=== PATIENT | male | born 1945 | race Caucasian/White ===

== ENCOUNTER → 2017-06-17 09:26 | Outpatient (CLI) | payer MEDICARE ==
[2015-11-03 12:28] VITALS: BMI 23.1
[~2017-06-17 09:26] MED LIST: BAYER CHEWABLE81 MG PO; PROZAC10 MG PO; ZESTRIL10 MG PO
== END | disposition home or self-care (01) ==
LOC: D.MRI 09:26
DX: M54.16 Radiculopathy, lumbar region (principal)

== ENCOUNTER 2018-07-13 10:48 | Inpatient (IN) | payer MEDICARE ==
[~2018-07-13] VITALS: Ht 172.7 cm; Wt 63.5 kg
--- NOTE | ~2018-07-13 | MORECARE ---
CASE MANAGEMENT DISCHARGE SUMMARY PATIENT: DELFINO ROSALES UNIT: [id number] ADM DATE: 07/13/18 AGE: 73 : 46 SEX: M ROOM/BED: D.2203 AUTHOR: GUALBERTO,DOC PHYSICIAN: REFERRING PHYSICIAN: ALEXANDRO QUEVEDO MD DATE OF SERVICE: 08/14/18 Discharge Plan Patient Name: DELFINO ROSALES Facility: [facility]:[place] : 1945 Planned Disposition: Home Anticipated Discharge Date: Discharge Date: Expected LOS: Initial Reviewer: [id number] Initial Review Date: 07/13/2018 Generated: 08/14/18 1:29 pm Comments DCP- Discharge Planning Updated by [id number]: Emmy Bardales on 08/14/18 11:[address] PATIENT AND FAMILY WOULD LIKE TO GO TO HOSPICE. THEY WOULD LIKE TO USE [facility], I CALLED AND SPOKE WITH RADHA FOR THE REFERRAL AND THEY WILL CALL ME BACK WITH A TIME THAT THEY WILL MEET WITH FAMILY IMM SERVED DCP- Discharge Planning Updated by [id number]: Scarlett Fred on 08/13/18 2:[address] Received a call from Dariela at [facility], she needs updated PT notes for insurance, I faxed them to her. CM will continue to follow and assist with discharge planning/needs. DCP- Discharge Planning Updated by [id number]: Emmy Bardales on 08/13/18 10:[address] Martha with [facility] called back and stated that they are waiting on auth for insurance. CM will continue to follow DCP- Discharge Planning Updated by [id number]: Emmy Bardales on 08/13/18 8:[address] CALLED [facility] FOR UPDATE ON PATIENT, LM FOR MARTHA TO CALL ME BACK DCP- Discharge Planning Updated by [id number]: Emmy Bardales on 08/12/18 1:[address] Sent clinicals to the [facility], they notified me today that they do not accept this insurance, Spoke with family they would like to send referral to [facility]. Will send referral DCP- Discharge Planning Updated by [email or web address]: Emmy Bardales on 08/11/18 3:[address] SPOKE WITH AND PATIENT ABOUT SKILLED REHAB. GAVE THEM OPTIONS AND THEY WILL LET ME KNOW EHICH ONE THEY WOULD LIKE TO SEND CLINICALS TO. CM WILL CONTINUE TO FOLLOW AND ASSIST WITH DC PLANNING DCP- Discharge Planning Updated by [id number]: Emmy Bardales on 08/05/18 11:[address] CALLED MARTHA AT [email or web address] [facility] TO LET HER KNOW THAT HE WAS NOT DISCHARGING HOME TODAY, SHE WAS MOVING HIM TO FRIDAY'S SCHEDULE INCASE HE WENT HOME TOMORROW CM WILL CONTINUE TO FOLLOW DCP- Discharge Planning Updated by [id number]: Emmy Bardales on 08/04/18 11:[address] SPOKE WITH ONDINA WITH [facility] PATIENT, ORDER SENT OVER CM WILL CONTINUE TO FOLLOW AND ASSIST DCP- Discharge Planning Updated by [id number]: Emmy Bardales on 08/04/18 10:[address] SPOKE WITH PATIENT AND ABOUT DC PLANNING, THEY WOULD LIKE HOME HEALTH AND PT WHEN THEY ARE DISCHARGED. YONI WITH [facility] AND [facility] #2. HE WILL NEED HOME O2, BSC, WALKER, ? NEBULIER. CM WILL CONTINUE TO FOLLOW AND ASSIST WITH DC PLANNING, SENT REFERRAL TO [email or web address] AND SPOKE WITH MARTHA IMM SERVED AND EXPLAINED DCP- Discharge Planning Updated by [email or web address]: Linette Gómez on 07/25/18 12:[address] LATE ENTRY 1000 AND SISTER IN LAW REQUESTED WITNESS FOR LIVING WILL AND HEALTH CARE PROXY. CM AND ER CMMARGE, WENT TO THE ROOM. PATIENT IS AWAKE AND ORIENTED TO PERSON, PLACE AND TIME. IS SLOW TO ANSWER, CM READ THE PAPERWORK REGARDING WISHES FOR MEDICAL TREATMENT OPTIONS. HIS AND SISTER IN LAW USUALLY ANSWERED THE QUESTIONS BEFORE THE PATIENT. CM ADVISED HE MUST HIS CHOICES KNOWN. HE SIGNED THE 2 FORMS REGARDING HIS CARE CHOICES. WITNESSED BY LABORATORY ANIMAL CARETAKER. THREE COPIES MADE AND ALL COPIES GIVEN TO THE AT HER REQUEST. DCP- Discharge Planning Updated by [id number]: Emmy Bardales on 07/14/18 12:[address] Patient Name: DELFINO ROSALES Admission Status: Elective Accout number: [id number] Admission Date: 07-13-2018 : 1945 Admission Diagnosis: Attending: ALEXANDRO QUEVEDO Current LOS: 1 Anticipated DC Date: Planned Disposition: Home Primary Insurance: [employer] Discharge Planning Comments: CM MET WITH PATIENT AND TO ASSESS DISCHARGE PLANNING NEEDS. PATIENT LIVES INDEPENDENLTY AT HOME WITH HIS WHERE HE PLANS TO RETURN. HE STATED THAT HE DENIES ANY DME OR COMMUNITY RESOURCES AT THIS TIME. HE STATES HIS HOME IS SAFE TO RETURN AND HIS WILL BE THE ONE TO DRIVE HIM. CM WILL CONTINUE TO FOLLOW AND ASSIST WITH DC PLANNING Edge Bander Operator: Emmy Bardales DCPIA - Discharge Planning Initial Assessment Updated by [email or web address]: Emmy Bardales on 07/14/18 12:31 pm * Is the patient Alert and Oriented? Yes * How many steps to enter\exit or inside your home? * PCP SAE * Pharmacy [facility] * Preadmission Environment Home with Family * ADLs Independent * Equipment None * List name and contact numbers for known caregivers / representatives who currently or will assist patient after discharge: ZAYDA () [phone] * Verbal permission to speak to the caregivers and representatives has been obtained from the patient. Yes * Community resources currently utilized None * Additional services required to return to the preadmission environment? No * Can the patient safely return to the preadmission environment? Yes * Has this patient been hospitalized within the prior 30 days at any hospital? No Coverage Notice Reviewer: [id number] Alyse Bardales Notice Issued Date-Time: 08/04/2018 10:40 Notice Type: IM Discharge Notice Notice Delivered To: Family Member Relationship to Patient: Spouse Mechanical Systems Control Engineer Name: ELDER ROSALES Delivery Method: HAND - Hand Delivered Maegan Days: Prior Verbal Notification: Recipient Understood Notice: Yes Recipient Signature: Yes Med Rec Note Co-signed by Attending: Coverage Notice Comment: Reviewer: [id number] - Emmy Bardales Notice Issued Date-Time: 08/14/2018 11:50 Notice Type: IM Discharge Notice Notice Delivered To: Family Member Relationship to Patient: Spouse Mechanical Systems Control Engineer Name: ZAYDA Delivery Method: HAND - Hand Delivered Maegan Days: Prior Verbal Notification: Recipient Understood Notice: Yes Recipient Signature: Yes Med Rec Note Co-signed by Attending: Coverage Notice Comment: Last DP export: 08/14/18 11:08 Patient Name: DELFINO ROSALES Page 41649 at 1229 All edits/amendments must be made on the electronic document DICTATION DATE: 08/14/181228 PRODUCTION SOUND MIXER: DEMARCUS 08/14/18 1229 RPT#: [id number] DC DATE: STATUS: ADM IN [facility] [address] [place] [address] END OF REPORT
--- NOTE | ~2018-07-13 | MORECARE ---
CASE MANAGEMENT DISCHARGE SUMMARY PATIENT: DELFINO ROSALES UNIT: [id number] ADM DATE: 07/13/18 AGE: 73 : 46 SEX: M ROOM/BED: D.2203 AUTHOR: GUALBERTO,DOC PHYSICIAN: REFERRING PHYSICIAN: ALEXANDRO QUEVEDO MD DATE OF SERVICE: 08/13/18 Discharge Plan Patient Name: DELFINO ROSALES Facility: [facility]:[place] : 1945 Planned Disposition: Home Anticipated Discharge Date: Discharge Date: Expected LOS: Initial Reviewer: [id number] Initial Review Date: 07/13/2018 Generated: 08/13/18 11:03 am Comments DCP- Discharge Planning Updated by [id number]: Emmy Bardales on 08/13/18 8:[address] CALLED [facility] FOR UPDATE ON PATIENT, FOR ALVINO TO CALL ME BACK DCP- Discharge Planning Updated by [email or web address]: Emmy Bardales on 08/12/18 1:[address] Sent clinicals to the [facility], they notified me today that they do not accept this insurance, Spoke with family they would like to send referral to [place]. Will send referral DCP- Discharge Planning Updated by [id number]: Emmy Bardales on 08/11/18 3:[address] SPOKE WITH AND PATIENT ABOUT SKILLED REHAB. GAVE THEM OPTIONS AND THEY WILL LET ME KNOW EHICH ONE THEY WOULD LIKE TO SEND CLINICALS TO. CM WILL CONTINUE TO FOLLOW AND ASSIST WITH DC PLANNING DCP- Discharge Planning Updated by [id number]: Emmy Bardales on 08/05/18 11:[address] CALL[address] MARTHA AT [facility] TO LET HER KNOW THAT HE WAS NOT DISCHARGING HOME TODAY, SHE WAS MOVING HIM TO FRIDAY'S SCHEDULE INCASE HE WENT HOME TOMORROW CM WILL CONTINUE TO FOLLOW DCP- Discharge Planning Updated by [id number]: Emmy Bardales on 08/04/18 11:[address] SPOKE WITH ONDINA WITH [facility] PATIENT, ORDER SENT OVER CM WILL CONTINUE TO FOLLOW AND ASSIST DCP- Discharge Planning Updated by [id number]: Emmy Bardales on 08/04/18 10:[address] SPOKE WITH PATIENT AND ABOUT DC PLANNING, THEY WOULD LIKE HOME HEALTH AND PT WHEN THEY ARE DISCHARGED. YONI WITH [facility] AND [facility] #2. HE WILL NEED HOME O2, BSC, WALKER, ? NEBULIER. CM WILL CONTINUE TO FOLLOW AND ASSIST WITH DC PLANNING, SENT REFERRAL TO [facility] AND SPOKE WITH MARTHA SCHAFER AND EXPLAINED DCP- Discharge Planning Updated by [id number]: Linette Gómez on 07/25/18 12:[address] LATE ENTRY 1000 AND SISTER IN LAW REQUESTED WITNESS FOR LIVING WILL AND HEALTH CARE PROXY. CM AND ER CM, MARGE, WENT TO THE ROOM. PATIENT IS AWAKE AND ORIENTED TO PERSON, PLACE AND TIME. IS SLOW TO ANSWER, CM READ THE PAPERWORK REGARDING WISHES FOR MEDICAL TREATMENT OPTIONS. HIS AND SISTER IN LAW USUALLY ANSWERED THE QUESTIONS BEFORE THE PATIENT. CM ADVISED HE MUST HIS CHOICES KNOWN. HE SIGNED THE 2 FORMS REGARDING HIS CARE CHOICES. WITNESSED BY SUPERVISOR GLUING. THREE COPIES MADE AND ALL COPIES GIVEN TO THE AT HER REQUEST. DCP- Discharge Planning Updated by [id number]: Emmy Bardales on 07/14/18 12:[address] Patient Name: DELFINO ROSALES Admission Status: Elective Accout number: [id number] Admission Date: 07-13-2018 : 1945 Admission Diagnosis: Attending: ALEXANDRO QUEVEDO Current LOS: 1 Anticipated DC Date: Planned Disposition: Home Primary Insurance: [employer] Discharge Planning Comments: CM MET WITH PATIENT AND TO ASSESS DISCHARGE PLANNING NEEDS. PATIENT LIVES INDEPENDENLTY AT HOME WITH HIS WHERE HE PLANS TO RETURN. HE STATED THAT HE DENIES ANY DME OR COMMUNITY RESOURCES AT THIS TIME. HE STATES HIS HOME IS SAFE TO RETURN AND HIS WILL BE THE ONE TO DRIVE HIM. CM WILL CONTINUE TO FOLLOW AND ASSIST WITH DC PLANNING Indigo Vat Tender Cloth: Emmy Bardales DCPIA - Discharge Planning Initial Assessment Updated by [id number]: Emmy Bardales on 07/14/18 12:31 pm * Is the patient Alert and Oriented? Yes * How many steps to enter\exit or inside your home? * PCP SAE * Pharmacy [facility] * Preadmission Environment Home with Family * ADLs Independent * Equipment None * List name and contact numbers for known caregivers / representatives who currently or will assist patient after discharge: ZAYDA () [phone] * Verbal permission to speak to the caregivers and representatives has been obtained from the patient. Yes * Community resources currently utilized None * Additional services required to return to the preadmission environment? No * Can the patient safely return to the preadmission environment? Yes * Has this patient been hospitalized within the prior 30 days at any hospital? No Coverage Notice Reviewer: [id number] Alyse Bardales Notice Issued Date-Time: 08/04/2018 10:40 Notice Type: IM Discharge Notice Notice Delivered To: Family Member Relationship to Patient: Spouse Process Steward Name: ELDER ROSALES Delivery Method: HAND - Hand Delivered Maegan Days: Prior Verbal Notification: Recipient Understood Notice: Yes Recipient Signature: Yes Med Rec Note Co-signed by Attending: Coverage Notice Comment: Last DP export: 08/12/18 1:09 Patient Name: DELFINO ROSALES Page 86887 at 1003 All edits/amendments must be made on the electronic document DICTATION DATE: 08/13/18 1002 WORKFORCE DEVELOPMENT SPECIALIST: DEMARCUS 08/13/18 1002 RPT#: [id number] DC DATE: STATUS: ADM IN [facility] [address] [place] [address] END OF REPORT
--- NOTE | ~2018-07-13 | MORECARE ---
CASE MANAGEMENT DISCHARGE SUMMARY PATIENT: DELFINO ROSALES UNIT: [id number] ADM DATE: 07/13/18 AGE: 73 : 46 SEX: M ROOM/BED: D.2203 AUTHOR: GUALBERTO,DOC PHYSICIAN: REFERRING PHYSICIAN: ALEXANDRO QUEVEDO MD DATE OF SERVICE: 08/11/18 Discharge Plan Patient Name: DELFINO ROSALES Facility: [facility]:[place] : 1945 Planned Disposition: Home Anticipated Discharge Date: Discharge Date: Expected LOS: Initial Reviewer: [id number] Initial Review Date: 07/13/2018 Generated: 08/11/18 5:21 pm Comments DCP- Discharge Planning Updated by [id number]: Emmy Bardales on 08/11/18 3:[address] SPOKE WITH AND PATIENT ABOUT SKILLED REHAB. GAVE THEM OPTIONS AND THEY WILL LET ME KNOW EHICH ONE THEY WOULD LIKE TO SEND CLINICALS TO. CM WILL CONTINUE TO FOLLOW AND ASSIST WITH DC PLANNING DCP- Discharge Planning Updated by [id number]: Emmy Bardales on 08/05/18 11:[address] CALLED MARTHA AT [facility] TO LET HER KNOW THAT HE WAS NOT DISCHARGING HOME TODAY, SHE WAS MOVING HIM TO FRIDAY'S SCHEDULE INCASE HE WENT HOME TOMORROW CM WILL CONTINUE TO FOLLOW DCP- Discharge Planning Updated by [id number]: Emmy Bardales on 08/04/18 11:[address] SPOKE WITH ONDINA WITH [facility] PATIENT, ORDER SENT OVER CM WILL CONTINUE TO FOLLOW AND ASSIST DCP- Discharge Planning Updated by [email or web address]: Emmy Bardales on 08/04/18 10:[address] SPOKE WITH PATIENT AND ABOUT DC PLANNING, THEY WOULD LIKE HOME HEALTH AND PT WHEN THEY ARE DISCHARGED. YONI WITH [facility]1 AND [facility] #2. HE WILL NEED HOME O2, BSC, WALKER, ? NEBULIER. CM WILL CONTINUE TO FOLLOW AND ASSIST WITH DC PLANNING, SENT REFERRAL TO [facility] AND SPOKE WITH MARTHA AVALOS SERVED AND EXPLAINED DCP- Discharge Planning Updated by [id number]: Linette Gómez on 07/25/18 12:[address] LATE ENTRY 1000 AND SISTER IN LAW REQUESTED WITNESS FOR LIVING WILL AND HEALTH CARE PROXY. CM AND ER CM, MARGE, WENT TO THE ROOM. PATIENT IS AWAKE AND ORIENTED TO PERSON, PLACE AND TIME. IS SLOW TO ANSWER, CM READ THE PAPERWORK REGARDING WISHES FOR MEDICAL TREATMENT OPTIONS. HIS AND SISTER IN LAW USUALLY ANSWERED THE QUESTIONS BEFORE THE PATIENT. CM ADVISED HE MUST HIS CHOICES KNOWN. HE SIGNED THE 2 FORMS REGARDING HIS CARE CHOICES. WITNESSED BY HAND BUNCH MAKER. THREE COPIES MADE AND ALL COPIES GIVEN TO THE AT HER REQUEST. DCP- Discharge Planning Updated by [id number]: Emmy Bardales on 07/14/18 12:[address] Patient Name: DELFINO ROSALES Admission Status: Elective Accout number: [id number] Admission Date: 07-13-2018 : 1945 Admission Diagnosis: Attending: ALEXANDRO QUEVEDO Current LOS: 1 Anticipated DC Date: Planned Disposition: Home Primary Insurance: [employer] Discharge Planning Comments: CM MET WITH PATIENT AND TO ASSESS DISCHARGE PLANNING NEEDS. PATIENT LIVES INDEPENDENLTY AT HOME WITH HIS WHERE HE PLANS TO RETURN. HE STATED THAT HE DENIES ANY DME OR COMMUNITY RESOURCES AT THIS TIME. HE STATES HIS HOME IS SAFE TO RETURN AND HIS WILL BE THE ONE TO DRIVE HIM. CM WILL CONTINUE TO FOLLOW AND ASSIST WITH DC PLANNING Sheep Farm Worker: Emmy Bardales DCPIA - Discharge Planning Initial Assessment Updated by [email or web address]: Emmy Bardales on 07/14/18 12:31 pm * Is the patient Alert and Oriented? Yes * How many steps to enter\exit or inside your home? * PCP SAE * Pharmacy [facility] * Preadmission Environment Home with Family * ADLs Independent * Equipment None * List name and contact numbers for known caregivers / representatives who currently or will assist patient after discharge: ZAYDA () [phone] * Verbal permission to speak to the caregivers and representatives has been obtained from the patient. Yes * Community resources currently utilized None * Additional services required to return to the preadmission environment? No * Can the patient safely return to the preadmission environment? Yes * Has this patient been hospitalized within the prior 30 days at any hospital? No Coverage Notice Reviewer: [id number] - Emmy Bardales Notice Issued Date-Time: 08/04/2018 10:40 Notice Type: IM Discharge Notice Notice Delivered To: Family Member Relationship to Patient: Spouse Mold Repair Technician Name: ELDER ROSALES Delivery Method: HAND - Hand Delivered Maegan Days: Prior Verbal Notification: Recipient Understood Notice: Yes Recipient Signature: Yes Med Rec Note Co-signed by Attending: Coverage Notice Comment: Last DP export: 08/05/18 11:54 Patient Name: DELFINO ROSALES Page 65708 at 1621 All edits/amendments must be made on the electronic document DICTATION DATE: 08/11/181619 SIDEHAND: DEMARCUS 08/11/181619 RPT#: [id number] DC DATE: STATUS: ADM IN [facility] [address] [place] [address] END OF REPORT
--- NOTE | ~2018-07-13 | MORECARE ---
CASE MANAGEMENT DISCHARGE SUMMARY PATIENT: DELFINO ROSALES UNIT: [id number] ADM DATE: 07/13/18 AGE: 73 : 46 SEX: M ROOM/BED: D.2203 AUTHOR: GUALBERTODOC PHYSICIAN: REFERRING PHYSICIAN: ALEXANDRO QUEVEDO MD DATE OF SERVICE: 07/14/18 Discharge Plan Patient Name: DELFINO ROSALES Facility: [facility]:[place] : 1945 Planned Disposition: Home Anticipated Discharge Date: Discharge Date: Expected LOS: Initial Reviewer: [id number] Initial Review Date: 07/13/2018 Generated: 07/14/18 1:35 pm Comments DCP- Discharge Planning Updated by [id number]: Emmy Bardales on 07/14/18 11:[address] Patient Name: DELFINO ROSALES Admission Status: Elective Accout number: [id number] Admission Date: 07-13-2018 : 1945 Admission Diagnosis: Attending: ALEXANDRO QUEVEDO Current LOS: 1 Anticipated DC Date: Planned Disposition: Home Primary Insurance: [employer] Discharge Planning Comments: CM MET WITH PATIENT AND TO ASSESS DISCHARGE PLANNING NEEDS. PATIENT LIVES INDEPENDENLTY AT HOME WITH HIS WHERE HE PLANS TO RETURN. HE STATED THAT HE DENIES ANY DME OR COMMUNITY RESOURCES AT THIS TIME. HE STATES HIS HOME IS SAFE TO RETURN AND HIS WILL BE THE ONE TO DRIVE HIM. CM WILL CONTINUE TO FOLLOW AND ASSIST WITH DC PLANNING Tool Marker: Emmy Bardales DCPIA - Discharge Planning Initial Assessment Updated by [email or web address]: Emmy Bardales on 07/14/18 12:31 pm * Is the patient Alert and Oriented? Yes * How many steps to enter\exit or inside your home? * PCP SAE * Pharmacy [facility] * Preadmission Environment Home with Family * ADLs Independent * Equipment None * List name and contact numbers for known caregivers / representatives who currently or will assist patient after discharge: ZAYDA () [phone] * Verbal permission to speak to the caregivers and representatives has been obtained from the patient. Yes * Community resources currently utilized None * Additional services required to return to the preadmission environment? No * Can the patient safely return to the preadmission environment? Yes * Has this patient been hospitalized within the prior 30 days at any hospital? No Patient Name: DELFINO ROSALES Page 68986 at 1235 All edits/amendments must be made on the electronic document DICTATION DATE: 07/14/181233 CROP DUSTER HELPER: DEMARCUS 07/14/18 1234 RPT#: [id number] DC DATE: STATUS: ADM IN [facility] [address] [place] [address] END OF REPORT
--- NOTE | ~2018-07-13 | MORECARE ---
CASE MANAGEMENT DISCHARGE SUMMARY PATIENT: DELFINO ROSALES UNIT: [id number] ADM DATE: 07/13/18 AGE: 73 : 47 SEX: M ROOM/BED: D.2203 AUTHOR: GUALBERTO,DOC PHYSICIAN: REFERRING PHYSICIAN: ALEXANDRO QUEVEDO MD DATE OF SERVICE: 08/04/18 Discharge Plan Patient Name: DELFINO ROSALES Facility: [facility]:[place] : 1945 Planned Disposition: Home Anticipated Discharge Date: Discharge Date: Expected LOS: Initial Reviewer: [id number] Initial Review Date: 07/13/2018 Generated: 08/04/18 11:53 am Comments DCP- Discharge Planning Updated by [id number]: Linette Gómez on 07/25/18 12:[address] LATE ENTRY 1000 AND SISTER IN LAW REQUESTED WITNESS FOR LIVING WILL AND HEALTH CARE PROXY. CM AND ER CMMARGE, WENT TO THE ROOM. PATIENT IS AWAKE AND ORIENTED TO PERSON, PLACE AND TIME. IS SLOW TO ANSWER, CM READ THE PAPERWORK REGARDING WISHES FOR MEDICAL TREATMENT OPTIONS. HIS AND SISTER IN LAW USUALLY ANSWERED THE QUESTIONS BEFORE THE PATIENT. CM ADVISED HE MUST HIS CHOICES KNOWN. HE SIGNED THE 2 FORMS REGARDING HIS CARE CHOICES. WITNESSED BY BAR ATTENDANT. THREE COPIES MADE AND ALL COPIES GIVEN TO THE AT HER REQUEST. DCP- Discharge Planning Updated by [id number]: Emmy Bardales on 07/14/18 12:[address] Patient Name: DELFINO ROSALES Admission Status: Elective Accout number: [id number] Admission Date: 07-13-2018 : 1945 Admission Diagnosis: Attending: ALEXANDRO QUEVEDO Current LOS: 1 Anticipated DC Date: Planned Disposition: Home Primary Insurance: [employer] Discharge Planning Comments: CM MET WITH PATIENT AND TO ASSESS DISCHARGE PLANNING NEEDS. PATIENT LIVES INDEPENDENLTY AT HOME WITH HIS WHERE HE PLANS TO RETURN. HE STATED THAT HE DENIES ANY DME OR COMMUNITY RESOURCES AT THIS TIME. HE STATES HIS HOME IS SAFE TO RETURN AND HIS WILL BE THE ONE TO DRIVE HIM. CM WILL CONTINUE TO FOLLOW AND ASSIST WITH DC PLANNING Sweat Box Attendant: Emmy Bardales DCPIA - Discharge Planning Initial Assessment Updated by [id number]: Emmy Bardales on 07/14/18 12:31 pm * Is the patient Alert and Oriented? Yes * How many steps to enter\exit or inside your home? * PCP SAE * Pharmacy [facility] * Preadmission Environment Home with Family * ADLs Independent * Equipment None * List name and contact numbers for known caregivers / representatives who currently or will assist patient after discharge: ZAYDA () [phone] * Verbal permission to speak to the caregivers and representatives has been obtained from the patient. Yes * Community resources currently utilized None * Additional services required to return to the preadmission environment? No * Can the patient safely return to the preadmission environment? Yes * Has this patient been hospitalized within the prior 30 days at any hospital? No External Providers [facility] Next Contact Date: Service Request Date: Service Type: Resolution: Reviewer: Comments: Last DP export: 07/25/18 12:56 Patient Name: DELFINO ROSALES Page 33247 at 1053 All edits/amendments must be made on the electronic document DICTATION DATE: 08/04/18 1053 FLOOR ATTENDANT: DEMARCUS 08/04/18 1053 RPT#: [id number] DC DATE: STATUS: ADM IN [facility] [address] [place] [address] END OF REPORT
--- NOTE | ~2018-07-13 | MORECARE ---
CASE MANAGEMENT DISCHARGE SUMMARY PATIENT: DELFINO ROSALES UNIT: [id number] ADM DATE: 07/13/18 AGE: 73 : 46 SEX: M ROOM/BED: D.2203 AUTHOR: GUALBERTO,DOC PHYSICIAN: REFERRING PHYSICIAN: ALEXANDRO QUEVEDO MD DATE OF SERVICE: 08/14/18 Discharge Plan Patient Name: DELFINO ROSALES Facility: [facility]:[place] : 1945 Planned Disposition: Home Anticipated Discharge Date: Discharge Date: Expected LOS: Initial Reviewer: [id number] Initial Review Date: 07/13/2018 Generated: 08/14/18 4:28 pm Comments DCP- Discharge Planning Updated by [id number]: Emmy Bardales on 08/14/18 2:[address] patient will be discharging to [facility] inpatient at [facility] DCP- Discharge Planning Updated by [id number]: Emmy Bardales on 08/14/18 12:[address] [facility] here speaking with patient and family DCP- Discharge Planning Updated by [id number]: Emmy Bardales on 08/14/18 11:[address] Ольга with [facility] stated that Janie will be here at 1:30. Family informed DCP- Discharge Planning Updated by [email or web address]: Emmy Bardales on 08/14/18 11:[address] PATIENT AND FAMILY WOULD LIKE TO GO TO HOSPICE. THEY WOULD LIKE TO USE [facility], I CALLED AND SPOKE WITH ОЛЬГА FOR THE REFERRAL AND THEY WILL CALL ME BACK WITH A TIME THAT THEY WILL MEET WITH FAMILY IMM SERVED DCP- Discharge Planning Updated by [id number]: Scarlett Ibarra on 08/13/18 2:[address] Received a call from Dariela at [facility], she needs updated PT notes for insurance, I faxed them to her. CM will continue to follow and assist with discharge planning/needs. DCP- Discharge Planning Updated by [email or web address]: Emmy Bardales on 08/13/18 10:[address] Marhta with [facility] called back and stated that they are waiting on auth for insurance. CM will continue to follow DCP- Discharge Planning Updated by [id number]: Emmy Bardales on 08/13/18 8:[address] CALLED QULILIAMW FOR UPDATE ON PATIENT, LM FOR MARTHA TO CALL ME BACK DCP- Discharge Planning Updated by [id number]: Emmy Bardales on 08/12/18 1:[address] Sent clinicals to the [facility], they notified me today that they do not accept this insurance, Spoke with family they would like to send referral to [facility]. Will send referral DCP- Discharge Planning Updated by [id number]: Emmy Bardales on 08/11/18 3:[address] SPOKE WITH AND PATIENT ABOUT [facility]ED [facility]HAB. GAVE THEM OPTIONS AND THEY WILL LET ME KNOW EHICH ONE THEY WOULD LIKE TO SEND CLINICALS TO. CM WILL CONTINUE TO FOLLOW AND ASSIST WITH DC PLANNING DCP- Discharge Planning Updated by [id number]: Emmy Bardales on 08/05/18 11:[address] CALLED MARTHA AT [facility] TO LET HER KNOW THAT HE WAS NOT DISCHARGING HOME TODAY, SHE WAS MOVING HIM TO FRIDAY'S SCHEDULE INCASE HE WENT HOME TOMORROW CM WILL CONTINUE TO FOLLOW DCP- Discharge Planning Updated by [email or web address]: Emmy Bardales on 08/04/18 11:[address] SPOKE WITH ONDINA WITH [facility] PATIENT, ORDER SENT OVER CM WILL CONTINUE TO FOLLOW AND ASSIST DCP- Discharge Planning Updated by [email or web address]: Emmy Bardales on 08/04/18 10:[address] SPOKE WITH PATIENT AND ABOUT DC PLANNING, THEY WOULD LIKE HOME HEALTH AND PT WHEN THEY ARE DISCHARGED. YONI WITH ELITE #1 AND ZANDER #2. HE WILL NEED HOME O2, BSC, WALKER, ? NEBULIER. CM WILL CONTINUE TO FOLLOW AND ASSIST WITH DC PLANNING, SENT REFERRAL TO [facility] AND SPOKE WITH MARTHA AVALOS SERVED AND EXPLAINED DCP- Discharge Planning Updated by [id number]: Linette Gómez on 07/25/18 12:[address] LATE ENTRY 1000 AND SISTER IN LAW REQUESTED WITNESS FOR LIVING WILL AND HEALTH CARE PROXY. CM AND ER CMMARGE, WENT TO THE ROOM. PATIENT IS AWAKE AND ORIENTED TO PERSON, PLACE AND TIME. IS SLOW TO ANSWER, CM READ THE PAPERWORK REGARDING WISHES FOR MEDICAL TREATMENT OPTIONS. HIS AND SISTER IN LAW USUALLY ANSWERED THE QUESTIONS BEFORE THE PATIENT. CM ADVISED HE MUST HIS CHOICES KNOWN. HE SIGNED THE 2 FORMS REGARDING HIS CARE CHOICES. WITNESSED BY HOUSEHOLD CHORES. THREE COPIES MADE AND ALL COPIES GIVEN TO THE AT HER REQUEST. DCP- Discharge Planning Updated by [id number]: Emmy Bardales on 07/14/18 12:[address] Patient Name: DELFINO ROSALES Admission Status: Elective Accout number: [id number] Admission Date: 07-13-2018 : 1945 Admission Diagnosis: Attending: ALEXANDRO QUEVEDO Current LOS: 1 Anticipated DC Date: Planned Disposition: Home Primary Insurance: [employer] Discharge Planning Comments: CM MET WITH PATIENT AND TO ASSESS DISCHARGE PLANNING NEEDS. PATIENT LIVES INDEPENDENLTY AT HOME WITH HIS WHERE HE PLANS TO RETURN. HE STATED THAT HE DENIES ANY DME OR COMMUNITY RESOURCES AT THIS TIME. HE STATES HIS HOME IS SAFE TO RETURN AND HIS WILL BE THE ONE TO DRIVE HIM. CM WILL CONTINUE TO FOLLOW AND ASSIST WITH DC PLANNING Biomedical Analytical Scientist: Emmy Bardales DCPIA - Discharge Planning Initial Assessment Updated by [id number]: Emmy Bardales on 07/14/18 12:31 pm * Is the patient Alert and Oriented? Yes * How many steps to enter\exit or inside your home? * PCP SEA * Pharmacy [facility] * Preadmission Environment Home with Family * ADLs Independent * Equipment None * List name and contact numbers for known caregivers / representatives who currently or will assist patient after discharge: ZAYDA () [phone] * Verbal permission to speak to the caregivers and representatives has been obtained from the patient. Yes * Community resources currently utilized None * Additional services required to return to the preadmission environment? No * Can the patient safely return to the preadmission environment? Yes * Has this patient been hospitalized within the prior 30 days at any hospital? No Coverage Notice Reviewer: [id number] Alyse Bardales Notice Issued Date-Time: 08/04/2018 10:40 Notice Type: IM Discharge Notice Notice Delivered To: Family Member Relationship to Patient: Spouse Watch Repairer Apprentice Name: ELDER ROSALES Delivery Method: HAND - Hand Delivered Maegan Days: Prior Verbal Notification: Recipient Understood Notice: Yes Recipient Signature: Yes Med Rec Note Co-signed by Attending: Coverage Notice Comment: Reviewer: [id number] Alyse Bardales Notice Issued Date-Time: 08/14/2018 11:50 Notice Type: IM Discharge Notice Notice Delivered To: Family Member Relationship to Patient: Spouse Watch Repairer Apprentice Name: ZAYDA Delivery Method: HAND - Hand Delivered Maegan Days: Prior Verbal Notification: Recipient Understood Notice: Yes Recipient Signature: Yes Med Rec Note Co-signed by Attending: Coverage Notice Comment: Last DP export: 08/14/18 1:02 Patient Name: DELFINO ROSALES Page [id number] at 1528 All edits/amendments must be made on the electronic document DICTATION DATE: 08/14/181527 BICYCLE II ASSEMBLER: DEMARCUS 08/14/181527 RPT#: [id number] DC DATE: STATUS: ADM IN [facility] [address] [place] [address] END OF REPORT
--- NOTE | ~2018-07-13 | MORECARE ---
CASE MANAGEMENT DISCHARGE SUMMARY PATIENT: DELFINO ROSALES UNIT: [id number] ADM DATE: 07/13/18 AGE: 73 : 46 SEX: M ROOM/BED: D.2203 AUTHOR: GUALBERTO,DOC PHYSICIAN: REFERRING PHYSICIAN: ALEXANDRO QUEVEDO MD DATE OF SERVICE: 08/14/18 Discharge Plan Patient Name: DELFINO ROSALES Facility: [facility]:[place] : 1945 Planned Disposition: Home Anticipated Discharge Date: Discharge Date: Expected LOS: Initial Reviewer: [id number] Initial Review Date: 07/13/2018 Generated: 08/14/18 1:01 pm Comments DCP- Discharge Planning Updated by [id number]: Scarlettmilena Ibarra on 08/13/18 2:[address] Received a call from Dariela at [facility], she needs updated PT notes for insurance, I faxed them to her. CM will continue to follow and assist with discharge planning/needs. DCP- Discharge Planning Updated by [email or web address]: Emmy Bardales on 08/13/18 10:[address] Martha with [facility] called back and stated that they are waiting on auth for insurance. CM will continue to follow DCP- Discharge Planning Updated by [email or web address]: Emmy Bardales on 08/13/18 8:[address] CALLED [facility] FOR UPDATE ON PATIENT, LM FOR MARTHA TO CALL ME BACK DCP- Discharge Planning Updated by [id number]: Emmy Bardales on 08/12/18 1:[address] Sent clinicals to the [facility], they notified me today that they do not accept this insurance, Spoke with family they would like to send referral to [facility]. Will send referral DCP- Discharge Planning Updated by [id number]: Emmy Bardales on 08/11/18 3:[address] SPOKE WITH AND PATIENT ABOUT SKILLED REHAB. GAVE THEM OPTIONS AND THEY WILL LET ME KNOW EHICH ONE THEY WOULD LIKE TO SEND CLINICALS TO. CM WILL CONTINUE TO FOLLOW AND ASSIST WITH DC PLANNING DCP- Discharge Planning Updated by [id number]: Emmy Bardales on 08/05/18 11:[address] CALLED MARTHA AT [facility] TO LET HER KNOW THAT HE WAS NOT DISCHARGING HOME TODAY, SHE WAS MOVING HIM TO FRIDAY'S SCHEDULE INCASE HE WENT HOME TOMORROW CM WILL CONTINUE TO FOLLOW DCP- Discharge Planning Updated by [id number]: Emmy Bardales on 08/04/18 11:[address] SPOKE WITH ONDINA WITH [facility] PATIENT, ORDER SENT OVER CM WILL CONTINUE TO FOLLOW AND ASSIST DCP- Discharge Planning Updated by [id number]: Emmy Bardales on 08/04/18 10:[address] SPOKE WITH PATIENT AND ABOUT DC PLANNING, THEY WOULD LIKE HOME HEALTH AND PT WHEN THEY ARE DISCHARGED. YONI WITH ELITE #1 AND ZANDER #2. HE WILL NEED HOME O2, BSC, WALKER, ? NEBULIER. CM WILL CONTINUE TO FOLLOW AND ASSIST WITH DC PLANNING, SENT REFERRAL TO [facility] AND SPOKE WITH MARTHA IMM SERVED AND EXPLAINED DCP- Discharge Planning Updated by [email or web address]: Linette Gómez on 07/25/18 12:[address] LATE ENTRY 1000 AND SISTER IN LAW REQUESTED WITNESS FOR LIVING WILL AND HEALTH CARE PROXY. CM AND ER CMMARGE, WENT TO THE ROOM. PATIENT IS AWAKE AND ORIENTED TO PERSON, PLACE AND TIME. IS SLOW TO ANSWER, CM READ THE PAPERWORK REGARDING WISHES FOR MEDICAL TREATMENT OPTIONS. HIS AND SISTER IN LAW USUALLY ANSWERED THE QUESTIONS BEFORE THE PATIENT. CM ADVISED HE MUST HIS CHOICES KNOWN. HE SIGNED THE 2 FORMS REGARDING HIS CARE CHOICES. WITNESSED BY TURN OUT WORKER. THREE COPIES MADE AND ALL COPIES GIVEN TO THE AT HER REQUEST. DCP- Discharge Planning Updated by [id number]: Emmy Catia on 07/14/18 12:[address] Patient Name: DELFINO ROSALES Admission Status: Elective Accout number: [id number] Admission Date: 07-13-2018 : 1945 Admission Diagnosis: Attending: ALEXANDRO QUEVEDO Current LOS: 1 Anticipated DC Date: Planned Disposition: Home Primary Insurance: [employer] Discharge Planning Comments: CM MET WITH PATIENT AND TO ASSESS DISCHARGE PLANNING NEEDS. PATIENT LIVES INDEPENDENLTY AT HOME WITH HIS WHERE HE PLANS TO RETURN. HE STATED THAT HE DENIES ANY DME OR COMMUNITY RESOURCES AT THIS TIME. HE STATES HIS HOME IS SAFE TO RETURN AND HIS WILL BE THE ONE TO DRIVE HIM. CM WILL CONTINUE TO FOLLOW AND ASSIST WITH DC PLANNING Brasswind Instrument Repairer: Emmy Bardales DCPIA - Discharge Planning Initial Assessment Updated by [id number]: Emmy Bardales on 07/14/18 12:31 pm * Is the patient Alert and Oriented? Yes * How many steps to enter\exit or inside your home? * PCP SAE * Pharmacy [facility] * Preadmission Environment Home with Family * ADLs Independent * Equipment None * List name and contact numbers for known caregivers / representatives who currently or will assist patient after discharge: ZAYDA () [phone] * Verbal permission to speak to the caregivers and representatives has been obtained from the patient. Yes * Community resources currently utilized None * Additional services required to return to the preadmission environment? No * Can the patient safely return to the preadmission environment? Yes * Has this patient been hospitalized within the prior 30 days at any hospital? No External Providers External Provider: [facility] Next Contact Date: Service Request Date: Service Type: Resolution: Reviewer: Comments: Coverage Notice Reviewer: [id number] - Emmy Bardales Notice Issued Date-Time: 08/04/2018 10:40 Notice Type: IM Discharge Notice Notice Delivered To: Family Member Relationship to Patient: Spouse Bookstore Clerk Name: ELDER ROSALES Delivery Method: HAND - Hand Delivered Maegan Days: Prior Verbal Notification: Recipient Understood Notice: Yes Recipient Signature: Yes Med Rec Note Co-signed by Attending: Coverage Notice Comment: Last DP export: 08/13/18 2:53 Patient Name: DELFINO ROSALES Page [id number] at 1201 All edits/amendments must be made on the electronic document DICTATION DATE: 08/14/18 1201 APPLICATION SUPPORT TECHNICIAN: DEMARCUS 08/14/18 1201 RPT#: [id number] DC DATE: STATUS: ADM IN [facility] [address] [place] [address] END OF REPORT
--- NOTE | ~2018-07-13 | MORECARE ---
CASE MANAGEMENT DISCHARGE SUMMARY PATIENT: DELFINO ROSALES UNIT: [id number] ADM DATE: 07/13/18 AGE: 73 : 46 SEX: M ROOM/BED: D.2203 AUTHOR: GUALBERTO,DOC PHYSICIAN: REFERRING PHYSICIAN: ALEXANDRO QUEVEDO MD DATE OF SERVICE: 08/12/18 Discharge Plan Patient Name: DELFINO ROSALES Facility: [facility]:[place] : 1945 Planned Disposition: Home Anticipated Discharge Date: Discharge Date: Expected LOS: Initial Reviewer: [id number] Initial Review Date: 07/13/2018 Generated: 08/12/18 3:09 pm Comments DCP- Discharge Planning Updated by [id number]: Emmy Bardales on 08/12/18 1:[address] Sent clinicals to the [facility], they notified me today that they do not accept this insurance, Spoke with family they would like to send referral to [facility]. Will send referral DCP- Discharge Planning Updated by [id number]: Emmy Bardales on 08/11/18 3:[address] SPOKE WITH AND PATIENT ABOUT SKILLED REHAB. GAVE THEM OPTIONS AND THEY WILL LET ME KNOW EHICH ONE THEY WOULD LIKE TO SEND CLINICALS TO. CM WILL CONTINUE TO FOLLOW AND ASSIST WITH DC PLANNING DCP- Discharge Planning Updated by [email or web address]: Emmy Bardales on 08/05/18 11:[address] CALLED MARTHA AT [facility] TO LET HER KNOW THAT HE WAS NOT DISCHARGING HOME TODAY, SHE WAS MOVING HIM TO FRIDAY'S SCHEDULE INCASE HE WENT HOME TOMORROW CM WILL CONTINUE TO FOLLOW DCP- Discharge Planning Updated by [id number]: Emmy Bardales on 08/04/18 11:[address] SPOKE WITH ONDINA WITH [facility] PATIENT, ORDER SENT OVER CM WILL CONTINUE TO FOLLOW AND ASSIST DCP- Discharge Planning Updated by [email or web address]: Emmy Bardales on 08/04/18 10:[address] SPOKE WITH PATIENT AND ABOUT DC PLANNING, THEY WOULD LIKE HOME HEALTH AND PT WHEN THEY ARE DISCHARGED. YONI WITH ELITE #1 AND ZANDER #2. HE WILL NEED HOME O2, BSC, WALKER, ? NEBULIER. CM WILL CONTINUE TO FOLLOW AND ASSIST WITH DC PLANNING, SENT REFERRAL TO [facility] AND SPOKE WITH MARTHA SCHAFER AND EXPLAINED DCP- Discharge Planning Updated by [id number]: Linette Gómez on 07/25/18 12:[address] LATE ENTRY 1000 AND SISTER IN LAW REQUESTED WITNESS FOR LIVING WILL AND HEALTH CARE PROXY. CM AND ER CM, MARGE, WENT TO THE ROOM. PATIENT IS AWAKE AND ORIENTED TO PERSON, PLACE AND TIME. IS SLOW TO ANSWER, CM READ THE PAPERWORK REGARDING WISHES FOR MEDICAL TREATMENT OPTIONS. HIS AND SISTER IN LAW USUALLY ANSWERED THE QUESTIONS BEFORE THE PATIENT. CM ADVISED HE MUST HIS CHOICES KNOWN. HE SIGNED THE 2 FORMS REGARDING HIS CARE CHOICES. WITNESSED BY ENDOCRINOLOGY NURSE. THREE COPIES MADE AND ALL COPIES GIVEN TO THE AT HER REQUEST. DCP- Discharge Planning Updated by [id number]: Emmy Bardales on 07/14/18 12:[address] Patient Name: DELFINO ROSALES Admission Status: Elective Accout number: [id number] Admission Date: 07-13-2018 : 1945 Admission Diagnosis: Attending: ALEXANDRO QUEVEDO Current LOS: 1 Anticipated DC Date: Planned Disposition: Home Primary Insurance: [employer] Discharge Planning Comments: CM MET WITH PATIENT AND TO ASSESS DISCHARGE PLANNING NEEDS. PATIENT LIVES INDEPENDENLTY AT HOME WITH HIS WHERE HE PLANS TO RETURN. HE STATED THAT HE DENIES ANY DME OR COMMUNITY RESOURCES AT THIS TIME. HE STATES HIS HOME IS SAFE TO RETURN AND HIS WILL BE THE ONE TO DRIVE HIM. CM WILL CONTINUE TO FOLLOW AND ASSIST WITH DC PLANNING Sales And Training Specialist: Emmy Bardales DCPIA - Discharge Planning Initial Assessment Updated by [email or web address]: Emmy Bardales on 07/14/18 12:31 pm * Is the patient Alert and Oriented? Yes * How many steps to enter\exit or inside your home? * PCP SAE * Pharmacy [facility] * Preadmission Environment Home with Family * ADLs Independent * Equipment None * List name and contact numbers for known caregivers / representatives who currently or will assist patient after discharge: ZAYDA () [phone] * Verbal permission to speak to the caregivers and representatives has been obtained from the patient. Yes * Community resources currently utilized None * Additional services required to return to the preadmission environment? No * Can the patient safely return to the preadmission environment? Yes * Has this patient been hospitalized within the prior 30 days at any hospital? No External Providers External Provider: [facility] Next Contact Date: Service Request Date: Service Type: Resolution: Reviewer: Comments: Coverage Notice Reviewer: [id number] Alyse Bardales Notice Issued Date-Time: 08/04/2018 10:40 Notice Type: IM Discharge Notice Notice Delivered To: Family Member Relationship to Patient: Spouse Rn Clinical Quality Name: ELDER ROSALES Delivery Method: HAND - Hand Delivered Maegan Days: Prior Verbal Notification: Recipient Understood Notice: Yes Recipient Signature: Yes Med Rec Note Co-signed by Attending: Coverage Notice Comment: Last DP export: 08/12/18 8:00 Patient Name: DELFINO ROSALES Page 63140 at 1409 All edits/amendments must be made on the electronic document DICTATION DATE: 08/12/181408 MANUFACTURING ASSISTANT: DEMARCUS 08/12/18 1409 RPT#: [id number] DC DATE: STATUS: ADM IN [facility] [address] [place] [address] END OF REPORT
--- NOTE | ~2018-07-13 | MORECARE ---
CASE MANAGEMENT DISCHARGE SUMMARY PATIENT: DELFINO ROSALES UNIT: [id number] ADM DATE: 07/13/18 AGE: 73 : 46 SEX: M ROOM/BED: D.2203 AUTHOR: GUALBERTO,DOC PHYSICIAN: REFERRING PHYSICIAN: LAEXANDRO QUEVEDO MD DATE OF SERVICE: 08/04/18 Discharge Plan Patient Name: DELFINO ROSALES Facility: [facility]:[place] : 1945 Planned Disposition: Home Anticipated Discharge Date: Discharge Date: Expected LOS: Initial Reviewer: [id number] Initial Review Date: 07/13/2018 Generated: 08/04/18 1:27 pm Comments DCP- Discharge Planning Updated by [id number]: Emmy Bardales on 08/04/18 11:[address] SPOKE WITH ONDINA WITH [facility] PATIENT, ORDER SENT OVER CM WILL CONTINUE TO FOLLOW AND ASSIST DCP- Discharge Planning Updated by [id number]: Emmy Bardales on 08/04/18 10:[address] SPOKE WITH PATIENT AND ABOUT DC PLANNING, THEY WOULD LIKE HOME HEALTH AND PT WHEN THEY ARE DISCHARGED. YONI WITH ELITE #1 AND ZANDER #2. HE WILL NEED HOME O2, BSC, WALKER, ? NEBULIER. CM WILL CONTINUE TO FOLLOW AND ASSIST WITH DC PLANNING, SENT REFERRAL TO [facility] AND SPOKE WITH MARTHA SCHAFER AND EXPLAINED DCP- Discharge Planning Updated by [email or web address]: Linette Gómez on 07/25/18 12:[address] LATE ENTRY 1000 AND SISTER IN LAW REQUESTED WITNESS FOR LIVING WILL AND HEALTH CARE PROXY. CM AND ER CMMARGE, WENT TO THE ROOM. PATIENT IS AWAKE AND ORIENTED TO PERSON, PLACE AND TIME. IS SLOW TO ANSWER, CM READ THE PAPERWORK REGARDING WISHES FOR MEDICAL TREATMENT OPTIONS. HIS AND SISTER IN LAW USUALLY ANSWERED THE QUESTIONS BEFORE THE PATIENT. CM ADVISED HE MUST HIS CHOICES KNOWN. HE SIGNED THE 2 FORMS REGARDING HIS CARE CHOICES. WITNESSED BY CUTCH CLEANER. THREE COPIES MADE AND ALL COPIES GIVEN TO THE AT HER REQUEST. DCP- Discharge Planning Updated by [id number]: Emmy Bardales on 07/14/18 12:[address] Patient Name: DELFINO ROSALES Admission Status: Elective Accout number: [id number] Admission Date: 07-13-2018 : 1945 Admission Diagnosis: Attending: ALEXANDRO QUEVEDO Current LOS: 1 Anticipated DC Date: Planned Disposition: Home Primary Insurance: [employer] Discharge Planning Comments: CM MET WITH PATIENT AND TO ASSESS DISCHARGE PLANNING NEEDS. PATIENT LIVES INDEPENDENLTY AT HOME WITH HIS WHERE HE PLANS TO RETURN. HE STATED THAT HE DENIES ANY DME OR COMMUNITY RESOURCES AT THIS TIME. HE STATES HIS HOME IS SAFE TO RETURN AND HIS WILL BE THE ONE TO DRIVE HIM. CM WILL CONTINUE TO FOLLOW AND ASSIST WITH DC PLANNING Lens Molder: Emmy Bardales DCPIA - Discharge Planning Initial Assessment Updated by [id number]: Emmy Bardales on 07/14/18 12:31 pm * Is the patient Alert and Oriented? Yes * How many steps to enter\exit or inside your home? * PCP SAE * Pharmacy [facility] * Preadmission Environment Home with Family * ADLs Independent * Equipment None * List name and contact numbers for known caregivers / representatives who currently or will assist patient after discharge: ZAYDA () [phone] * Verbal permission to speak to the caregivers and representatives has been obtained from the patient. Yes * Community resources currently utilized None * Additional services required to return to the preadmission environment? No * Can the patient safely return to the preadmission environment? Yes * Has this patient been hospitalized within the prior 30 days at any hospital? No External Providers External Provider: [facility] Next Contact Date: Service Request Date: Service Type: Resolution: Reviewer: Comments: Coverage Notice Reviewer: [id number] - Emmy Bardales Notice Issued Date-Time: 08/04/2018 10:40 Notice Type: IM Discharge Notice Notice Delivered To: Family Member Relationship to Patient: Spouse Foundry Superintendant Name: ELDER ROSALES Delivery Method: HAND - Hand Delivered Maegan Days: Prior Verbal Notification: Recipient Understood Notice: Yes Recipient Signature: Yes Med Rec Note Co-signed by Attending: Coverage Notice Comment: Last DP export: 08/04/18 10:08 Patient Name: DELFINO ROSALES Page [id number] at 1227 All edits/amendments must be made on the electronic document DICTATION DATE: 08/04/181226 HEAD CHARGER: DM 08/04/181226 RPT#: [id number] DC DATE: STATUS: ADM IN [facility] [address] [place] [address] END OF REPORT
--- NOTE | ~2018-07-13 | OP ---
PATIENT NAME: DELFINO ROSALES MEDICAL RECORD: [id number] :47 LOCATION:D.MS [id number] ADMISSION DATE:07/13/18 SURGEON: JANNETTE COLE MD DATE OF OPERATION: 07/17/2018 PREOPERATIVE DIAGNOSES: 1. Non-small cell lung cancer. 2. Emphysema. 3. Nicotine dependence. 4. Hypertension. 5. Coronary artery disease. POSTOPERATIVE DIAGNOSES: 1. Non-small cell lung cancer. 2. Emphysema. 3. Nicotine dependence. 4. Hypertension. 5. Coronary artery disease. PROCEDURE: 1. Left subclavian vein PowerPort placement. 2. Fluoroscopic interpretation. SURGEON: Jannette Cole MD REPORT OF PROCEDURE: The patient's left chest was prepped and draped in sterile fashion. A needle was used to cannulate the left subclavian vein and a guidewire was advanced with ease. A skin incision was made on the left superior lateral chest. At this point, the patient was difficult to relax, so 10 cc of 1% lidocaine with epinephrine was infused into the surrounding tissues. We then made a subcutaneous pouch overlying the pectoral fascia. The catheter was tunneled between this pouch and the wire exit site. The port was sutured to the pectoral fascia using interrupted 2-0 Prolenes times 2. The catheter was cut with a beveled tip at 21 cm. The dilator trocar device was then placed over the wire and the wire and dilator were removed. The catheter tip was advanced through the trocar and the trocar was then removed. The catheter tip was noted to be resting in good position at the right atrial superior vena caval junction. The catheter did not aspirate any blood, but it did flush easily. At this point, the subcutaneous tissues were reapproximated with interrupted 3-0 Vicryl and the skin was closed with running subcutaneous 5-0 Monocryl. We then accessed the port one last time and flushed it with heparinized saline. COMPLICATIONS: None. CONDITION: Stable. ANESTHESIA: General endotracheal and local. BLOOD LOSS: Minimal. TRANSINT:[id number] Voice Confirmation ID: [id number] DOCUMENT ID: [id number] OPERATIVE REPORT [id number] DELFINO ROSALES JANNETTE COLE MD at 1211 CC: [id number] DICTATION DATE: 07/17/18924 INTERNATIONAL LOGISTICS ANALYST: 07/17/18 1005 ADM IN [facility] [address] [facility]
--- NOTE | ~2018-07-13 | MORECARE ---
CASE MANAGEMENT DISCHARGE SUMMARY PATIENT: DELFINO ROSALES UNIT: [id number] ADM DATE: 07/13/18 AGE: 73 : 46 SEX: M ROOM/BED: D.2203 AUTHOR: GUALBERTO,DOC PHYSICIAN: REFERRING PHYSICIAN: ALEXANDRO QUEVEDO MD DATE OF SERVICE: 07/25/18 Discharge Plan Patient Name: DELFINO ROSALES Facility: [facility]:[place] : 1945 Planned Disposition: Home Anticipated Discharge Date: Discharge Date: Expected LOS: Initial Reviewer: [id number] Initial Review Date: 07/13/2018 Generated: 07/25/18 2:56 pm Comments DCP- Discharge Planning Updated by [email or web address]: Linette Gómez on 07/25/18 12:[address] LATE ENTRY 1000 AND SISTER IN LAW REQUESTED WITNESS FOR LIVING WILL AND HEALTH CARE PROXY. CM AND ER CMMARGE, WENT TO THE ROOM. PATIENT IS AWAKE AND ORIENTED TO PERSON, PLACE AND TIME. IS SLOW TO ANSWER, CM READ THE PAPERWORK REGARDING WISHES FOR MEDICAL TREATMENT OPTIONS. HIS AND SISTER IN LAW USUALLY ANSWERED THE QUESTIONS BEFORE THE PATIENT. CM ADVISED HE MUST HIS CHOICES KNOWN. HE SIGNED THE 2 FORMS REGARDING HIS CARE CHOICES. WITNESSED BY TAX FORM PREPARER. THREE COPIES MADE AND ALL COPIES GIVEN TO THE AT HER REQUEST. DCP- Discharge Planning Updated by [email or web address]: Emmy Bardales on 07/14/18 12:[address] Patient Name: DELFINO ROSALES Admission Status: Elective Accout number: [id number] Admission Date: 07-13-2018 : 1945 Admission Diagnosis: Attending: ALEXANDRO QUEVEDO Current LOS: 1 Anticipated DC Date: Planned Disposition: Home Primary Insurance: [employer] Discharge Planning Comments: CM MET WITH PATIENT AND TO ASSESS DISCHARGE PLANNING NEEDS. PATIENT LIVES INDEPENDENLTY AT HOME WITH HIS WHERE HE PLANS TO RETURN. HE STATED THAT HE DENIES ANY DME OR COMMUNITY RESOURCES AT THIS TIME. HE STATES HIS HOME IS SAFE TO RETURN AND HIS WILL BE THE ONE TO DRIVE HIM. CM WILL CONTINUE TO FOLLOW AND ASSIST WITH DC PLANNING Dry House Wheeler: Emmy Bardales DCPIA - Discharge Planning Initial Assessment Updated by [id number]: Emmy Bardales on 07/14/18 12:31 pm * Is the patient Alert and Oriented? Yes * How many steps to enter\exit or inside your home? * PCP SAE * Pharmacy [facility] * Preadmission Environment Home with Family * ADLs Independent * Equipment None * List name and contact numbers for known caregivers / representatives who currently or will assist patient after discharge: ZAYDA () [phone] * Verbal permission to speak to the caregivers and representatives has been obtained from the patient. Yes * Community resources currently utilized None * Additional services required to return to the preadmission environment? No * Can the patient safely return to the preadmission environment? Yes * Has this patient been hospitalized within the prior 30 days at any hospital? No Last DP export: 07/14/18 12:35 Patient Name: DELFINO ROSALES Page 49453 at 1356 All edits/amendments must be made on the electronic document DICTATION DATE: 07/25/18 1356 SALON SALES CONSULTANT: DEMARCUS 07/25/18 1356 RPT#: [id number] DC DATE: STATUS: ADM IN [facility] [address] [place] [address] END OF REPORT
--- NOTE | ~2018-07-13 | EC ---
PATIENT:DELFINO ROSALES DATE OF SERVICE: 07/13/18 SEX: M MEDICAL RECORD: [id number] DATE OF : [birth year] LOCATION:D.MS [place] AGE OF PATIENT: 73 ADMISSION DATE: 07/13/18 REFERRING PHYSICIAN: INTERPRETING PHYSICIAN: HUGO MOTA MD ECHOCARDIOGRAM REPORT ECHO CHARGES 4 ECHO COMPLETE Date: 07/19/18 CLINICAL DIAGNOSIS: HYPOXIA ECHOCARDIOGRAPHIC MEASUREMENTS (adult normal given) AC root (d.<3.7cm) 3.4 cm LV Septum d (<1.2 cm> 1.4 cm Valve Excursion 1.9 cm LV Septum (systole) 1.9 cm Left Atria (s.<4.0cm> 2.7 cm LVPW d(<1.2cm) 1.2 cm RV (d.<2.3cm) 2.6 cm LVPW (sytole) 2.0 cm LV diastole(<5.6CM) 5.6 cm MV E-F(>70mm/sec) cm LV systole 3.9 cm LVOT Diameter 2.1 cm MV exc.(>10mm) cm Est.ejection fraction (50-75%) % DOPPLER: LVIT cm/sec A 85.0 cm/sec E 57.0 cm/sec LA cm/sec RVSP 53.0 mmHg LVOT 87.0 cm/sec AOP1/2T m/s Asc. Ao 141 cm/sec RVOT 71.0 cm/sec RA cm/sec PA 111 cm/sec AV Gradient Peak 8.0 mmHg AV Mean 3.6 mmHg AV Area 3.5 cm MV Gradient Peak 5.2 mmHg MV Mean 1.7 mmHg MV Area cm COMMENTS: Industrial Gas Servicer: Jose LOPEZOE General Foreman: 1 Dr. Mota TAPE# PACS Pericardial Effusion N DATE OF SERVICE: 07/19/2018 PROCEDURE: Echocardiogram. FINDINGS: 1. Left ventricular chamber size is mildly dilated. Left ventricular systolic function is mild to moderately reduced. Overall ejection fraction of 35% to 40%. 2. Left atrium, right atrium, and right ventricle chamber sizes are within normal limits. ECHOCARDIOGRAM REPORT [id number] DELFINO ROSALES 3. Valvular structures have normal structure and motion. 4. Doppler interrogation reveals [id number]-[id number] mitral regurgitation, moderate tricuspid regurgitation, no other valvular insufficiency or stenosis. Pulmonary systolic pressure is elevated, estimated at 53 mmHg. 5. No evidence of pericardial effusion or left ventricular thrombus. TRANSINT:[id number] Voice Confirmation ID: [id number] DOCUMENT ID: [id number] HUGO MOTA MD at 1059 CC: [id number] DICTATION DATE: 07/20/18 1250 YIELD CLERK: 07/20/18 1322 ADM IN [place] [id number] [place] [address]
--- NOTE | ~2018-07-13 | MORECARE ---
CASE MANAGEMENT DISCHARGE SUMMARY PATIENT: DELFINO ROSALES UNIT: [id number] ADM DATE: 07/13/18 AGE: 73 : 47 SEX: M ROOM/BED: D.2203 AUTHOR: GUALBERTO,DOC PHYSICIAN: REFERRING PHYSICIAN: ALEXANDRO QUEVEDO MD DATE OF SERVICE: 08/12/18 Discharge Plan Patient Name: DELFINO ROSALES Facility: [facility]:[place] : 1945 Planned Disposition: Home Anticipated Discharge Date: Discharge Date: Expected LOS: Initial Reviewer: [id number] Initial Review Date: 07/13/2018 Generated: 08/12/18 10:00 am Comments DCP- Discharge Planning Updated by [email or web address]: Emmy Bardales on 08/11/18 3:[address] SPOKE WITH AND PATIENT ABOUT SKILLED REHAB. GAVE THEM OPTIONS AND THEY WILL LET ME KNOW EHICH ONE THEY WOULD LIKE TO SEND CLINICALS TO. CM WILL CONTINUE TO FOLLOW AND ASSIST WITH DC PLANNING DCP- Discharge Planning Updated by [email or web address]: Emmy Bardales on 08/05/18 11:[address] CALLED MARTHA AT [facility] TO LET HER KNOW THAT HE WAS NOT DISCHARGING HOME TODAY, SHE WAS MOVING HIM TO FRIDAY'S SCHEDULE INCASE HE WENT HOME TOMORROW CM WILL CONTINUE TO FOLLOW DCP- Discharge Planning Updated by [id number]: Emmy Bardales on 08/04/18 11:[address] SPOKE WITH ONDINA WITH [facility] PATIENT, ORDER SENT OVER CM WILL CONTINUE TO FOLLOW AND ASSIST DCP- Discharge Planning Updated by [email or web address]: Emmy Bardales on 08/04/18 10:[address] SPOKE WITH PATIENT AND ABOUT DC PLANNING, THEY WOULD LIKE HOME HEALTH AND PT WHEN THEY ARE DISCHARGED. YONI WITH [facility] AND [facility]. HE WILL NEED HOME O2, BSC, WALKER, ? NEBULIER. CM WILL CONTINUE TO FOLLOW AND ASSIST WITH DC PLANNING, SENT REFERRAL TO [facility] AND SPOKE WITH MARTHA AVALOS SERVED AND EXPLAINED DCP- Discharge Planning Updated by [email or web address]: Linette Gómez on 07/25/18 12:[address] LATE ENTRY 1000 AND SISTER IN LAW REQUESTED WITNESS FOR LIVING WILL AND HEALTH CARE PROXY. CM AND ER CM, MARGE, WENT TO THE ROOM. PATIENT IS AWAKE AND ORIENTED TO PERSON, PLACE AND TIME. IS SLOW TO ANSWER, CM READ THE PAPERWORK REGARDING WISHES FOR MEDICAL TREATMENT OPTIONS. HIS AND SISTER IN LAW USUALLY ANSWERED THE QUESTIONS BEFORE THE PATIENT. CM ADVISED HE MUST HIS CHOICES KNOWN. HE SIGNED THE 2 FORMS REGARDING HIS CARE CHOICES. WITNESSED BY UNIFORM MAKER. THREE COPIES MADE AND ALL COPIES GIVEN TO THE AT HER REQUEST. DCP- Discharge Planning Updated by [email or web address]: Emmy Bardales on 07/14/18 12:[address] Patient Name: DELFINO ROSALES Admission Status: Elective Accout number: [id number] Admission Date: 07-13-2018 : 1945 Admission Diagnosis: Attending: ALEXANDRO QUEVEDO Current LOS: 1 Anticipated DC Date: Planned Disposition: Home Primary Insurance: [employer] Discharge Planning Comments: CM MET WITH PATIENT AND TO ASSESS DISCHARGE PLANNING NEEDS. PATIENT LIVES INDEPENDENLTY AT HOME WITH HIS WHERE HE PLANS TO RETURN. HE STATED THAT HE DENIES ANY DME OR COMMUNITY RESOURCES AT THIS TIME. HE STATES HIS HOME IS SAFE TO RETURN AND HIS WILL BE THE ONE TO DRIVE HIM. CM WILL CONTINUE TO FOLLOW AND ASSIST WITH DC PLANNING Mandate Retail Service Merchandiser: Emmy Bardales DCPIA - Discharge Planning Initial Assessment Updated by [email or web address]: Emmy Bardales on 07/14/18 12:31 pm * Is the patient Alert and Oriented? Yes * How many steps to enter\exit or inside your home? * PCP SAE * Pharmacy [facility] * Preadmission Environment Home with Family * ADLs Independent * Equipment None * List name and contact numbers for known caregivers / representatives who currently or will assist patient after discharge: ZAYDA () [phone] * Verbal permission to speak to the caregivers and representatives has been obtained from the patient. Yes * Community resources currently utilized None * Additional services required to return to the preadmission environment? No * Can the patient safely return to the preadmission environment? Yes * Has this patient been hospitalized within the prior 30 days at any hospital? No External Providers External Provider: [facility] Next Contact Date: Service Request Date: Service Type: Resolution: Reviewer: Comments: Coverage Notice Reviewer: [id number] Alyse Bardales Notice Issued Date-Time: 08/04/2018 10:40 Notice Type: IM Discharge Notice Notice Delivered To: Family Member Relationship to Patient: Spouse Digital Color Press Operator Name: ELDER ROSALES Delivery Method: HAND - Hand Delivered Maegan Days: Prior Verbal Notification: Recipient Understood Notice: Yes Recipient Signature: Yes Med Rec Note Co-signed by Attending: Coverage Notice Comment: Last DP export: 08/11/18 3:21 Patient Name: DELFINO ROSALES Page 44700 at 0900 All edits/amendments must be made on the electronic document DICTATION DATE: 08/12/18858 MOBILE DEVICE ENGINEER: DEMARCUS 08/12/1859 RPT#: [id number] DC DATE: STATUS: ADM IN [facility] [address] [place] [address] END OF REPORT
--- NOTE | ~2018-07-13 | MORECARE ---
CASE MANAGEMENT DISCHARGE SUMMARY PATIENT: DELFINO ROSALES UNIT: [id number] ADM DATE: 07/13/18 AGE: 73 : 46 SEX: M ROOM/BED: D.2203 AUTHOR: GUALBERTO,DOC PHYSICIAN: REFERRING PHYSICIAN: ALEXANDRO QUEVEDO MD DATE OF SERVICE: 08/04/18 Discharge Plan Patient Name: DELFINO ROSALES Facility: [facility]:[place] : 1945 Planned Disposition: Home Anticipated Discharge Date: Discharge Date: Expected LOS: Initial Reviewer: [id number] Initial Review Date: 07/13/2018 Generated: 08/04/18 12:08 pm Comments DCP- Discharge Planning Updated by [id number]: Emmy Bardales on 08/04/18 10:[address] SPOKE WITH PATIENT AND ABOUT DC PLANNING, THEY WOULD LIKE HOME HEALTH AND PT WHEN THEY ARE DISCHARGED. YONI WITH [facility] AND [facility]. HE WILL NEED HOME O2, BSC, WALKER, ? NEBULIER. CM WILL CONTINUE TO FOLLOW AND ASSIST WITH DC PLANNING, SENT REFERRAL TO [facility] AND SPOKE WITH MARTHA SCHAFER AND EXPLAINED DCP- Discharge Planning Updated by [id number]: Linette Gómez on 07/25/18 12:[address] LATE ENTRY 1000 AND SISTER IN LAW REQUESTED WITNESS FOR LIVING WILL AND HEALTH CARE PROXY. CM AND ER CMMARGE, WENT TO THE ROOM. PATIENT IS AWAKE AND ORIENTED TO PERSON, PLACE AND TIME. IS SLOW TO ANSWER, CM READ THE PAPERWORK REGARDING WISHES FOR MEDICAL TREATMENT OPTIONS. HIS AND SISTER IN LAW USUALLY ANSWERED THE QUESTIONS BEFORE THE PATIENT. CM ADVISED HE MUST HIS CHOICES KNOWN. HE SIGNED THE 2 FORMS REGARDING HIS CARE CHOICES. WITNESSED BY SHUTTLER. THREE COPIES MADE AND ALL COPIES GIVEN TO THE AT HER REQUEST. DCP- Discharge Planning Updated by [email or web address]: Emmy Bardales on 07/14/18 12:[address] Patient Name: DELFINO ROSALES Admission Status: Elective Accout number: [id number] Admission Date: 07-13-2018 : 1945 Admission Diagnosis: Attending: ALEXANDRO QUEVEDO Current LOS: 1 Anticipated DC Date: Planned Disposition: Home Primary Insurance: [employer] Discharge Planning Comments: CM MET WITH PATIENT AND TO ASSESS DISCHARGE PLANNING NEEDS. PATIENT LIVES INDEPENDENLTY AT HOME WITH HIS WHERE HE PLANS TO RETURN. HE STATED THAT HE DENIES ANY DME OR COMMUNITY RESOURCES AT THIS TIME. HE STATES HIS HOME IS SAFE TO RETURN AND HIS WILL BE THE ONE TO DRIVE HIM. CM WILL CONTINUE TO FOLLOW AND ASSIST WITH DC PLANNING Private Duty Aide: Emmy Bardales DCPIA - Discharge Planning Initial Assessment Updated by [email or web address]: Emmy Bardales on 07/14/18 12:31 pm * Is the patient Alert and Oriented? Yes * How many steps to enter\exit or inside your home? * PCP SAE * Pharmacy [facility] * Preadmission Environment Home with Family * ADLs Independent * Equipment None * List name and contact numbers for known caregivers / representatives who currently or will assist patient after discharge: ZAYDA () [phone] * Verbal permission to speak to the caregivers and representatives has been obtained from the patient. Yes * Community resources currently utilized None * Additional services required to return to the preadmission environment? No * Can the patient safely return to the preadmission environment? Yes * Has this patient been hospitalized within the prior 30 days at any hospital? No Coverage Notice Reviewer: [id number] - Emmy Bardales Notice Issued Date-Time: 08/04/2018 10:40 Notice Type: IM Discharge Notice Notice Delivered To: Family Member Relationship to Patient: Spouse Regulator Mechanic Name: ELDER ROSALES Delivery Method: HAND - Hand Delivered Maegan Days: Prior Verbal Notification: Recipient Understood Notice: Yes Recipient Signature: Yes Med Rec Note Co-signed by Attending: Coverage Notice Comment: Last DP export: 08/04/18 9:53 Patient Name: DELFINO ROSALES Page 58830 at 1108 All edits/amendments must be made on the electronic document DICTATION DATE: 08/04/181106 BOARD CERTIFIED MUSIC THERAPIST: DEMARCUS 08/04/181106 RPT#: [id number] DC DATE: STATUS: ADM IN [facility] [address] [place] [address] END OF REPORT
--- NOTE | ~2018-07-13 | MORECARE ---
CASE MANAGEMENT DISCHARGE SUMMARY PATIENT: DELFINO ROSALES UNIT: [id number] ADM DATE: 07/13/18 AGE: 73 : 46 SEX: M ROOM/BED: D.2203 AUTHOR: GUALBERTO,DOC PHYSICIAN: REFERRING PHYSICIAN: ALEXANDRO QUEVEDO MD DATE OF SERVICE: 08/14/18 Discharge Plan Patient Name: DELFINO ROSALES Facility: [facility]:[place] : 1945 Planned Disposition: Home Anticipated Discharge Date: Discharge Date: Expected LOS: Initial Reviewer: [id number] Initial Review Date: 07/13/2018 Generated: 08/14/18 1:08 pm Comments DCP- Discharge Planning Updated by [id number]: Emmy Bardales on 08/14/18 11:[address] PATIENT AND FAMILY WOULD LIKE TO GO TO HOSPICE. THEY WOULD LIKE TO USE [facility], I CALLED AND SPOKE WITH [facility] FOR THE REFERRAL AND THEY WILL CALL ME BACK WITH A TIME THAT THEY WILL MEET WITH FAMILY IMM SERVED DCP- Discharge Planning Updated by [id number]: Scarlett Fred on 08/13/18 2:[address] Received a call from Dariela at [facility], she needs updated PT notes for insurance, I faxed them to her. CM will continue to follow and assist with discharge planning/needs. DCP- Discharge Planning Updated by [email or web address]: Emmy Bardales on 08/13/18 10:[address] Martha with [facility] called back and stated that they are waiting on auth for insurance. CM will continue to follow DCP- Discharge Planning Updated by [email or web address]: Emmy Bardales on 08/13/18 8:[address] CALLED [facility] FOR UPDATE ON PATIENT, LM FOR MARTHA TO CALL ME BACK DCP- Discharge Planning Updated by [email or web address]: Emmy Bardales on 08/12/18 1:[address] Sent clinicals to [facility], they notified me today that they do not accept this insurance, Spoke with family they would like to send referral to [facility]. Will send referral DCP- Discharge Planning Updated by [email or web address]: Emmy Bardales on 08/11/18 3:[address] SPOKE WITH AND PATIENT ABOUT SKILLED REHAB. GAVE THEM OPTIONS AND THEY WILL LET ME KNOW EHICH ONE THEY WOULD LIKE TO SEND CLINICALS TO. CM WILL CONTINUE TO FOLLOW AND ASSIST WITH DC PLANNING DCP- Discharge Planning Updated by [id number]: Emmy Bardales on 08/05/18 11:[address] CALLED MARTHA AT [facility] TO LET HER KNOW THAT HE WAS NOT DISCHARGING HOME TODAY, SHE WAS MOVING HIM TO FRIDAY'S SCHEDULE INCASE HE WENT HOME TOMORROW CM WILL CONTINUE TO FOLLOW DCP- Discharge Planning Updated by [id number]: Emmy Bardales on 08/04/18 11:[address] SPOKE WITH ONDINA WITH [facility] PATIENT, ORDER SENT OVER CM WILL CONTINUE TO FOLLOW AND ASSIST DCP- Discharge Planning Updated by [id number]: Emmy Bardales on 08/04/18 10:[address] SPOKE WITH PATIENT AND ABOUT DC PLANNING, THEY WOULD LIKE HOME HEALTH AND PT WHEN THEY ARE DISCHARGED. YONI WITH [facility] AND [facility]. HE WILL NEED HOME O2, BSC, WALKER, ? NEBULIER. CM WILL CONTINUE TO FOLLOW AND ASSIST WITH DC PLANNING, SENT REFERRAL TO [facility] AND SPOKE WITH MARTHA IMM SERVED AND EXPLAINED DCP- Discharge Planning Updated by [email or web address]: Linette Gómez on 07/25/18 12:[address] LATE ENTRY 1000 AND SISTER IN LAW REQUESTED WITNESS FOR LIVING WILL AND HEALTH CARE PROXY. CM AND ER CMMARGE, WENT TO THE ROOM. PATIENT IS AWAKE AND ORIENTED TO PERSON, PLACE AND TIME. IS SLOW TO ANSWER, CM READ THE PAPERWORK REGARDING WISHES FOR MEDICAL TREATMENT OPTIONS. HIS AND SISTER IN LAW USUALLY ANSWERED THE QUESTIONS BEFORE THE PATIENT. CM ADVISED HE MUST HIS CHOICES KNOWN. HE SIGNED THE 2 FORMS REGARDING HIS CARE CHOICES. WITNESSED BY VISUAL MERCHANDISING DIRECTOR. THREE COPIES MADE AND ALL COPIES GIVEN TO THE AT HER REQUEST. DCP- Discharge Planning Updated by [id number]: Emmy Bardales on 07/14/18 12:[address] Patient Name: DELFINO ROSALES Admission Status: Elective Accout number: [id number] Admission Date: 07-13-2018 : 1945 Admission Diagnosis: Attending: ALEXANDRO QUEVEDO Current LOS: 1 Anticipated DC Date: Planned Disposition: Home Primary Insurance: [employer] Discharge Planning Comments: CM MET WITH PATIENT AND TO ASSESS DISCHARGE PLANNING NEEDS. PATIENT LIVES INDEPENDENLTY AT HOME WITH HIS WHERE HE PLANS TO RETURN. HE STATED THAT HE DENIES ANY DME OR COMMUNITY RESOURCES AT THIS TIME. HE STATES HIS HOME IS SAFE TO RETURN AND HIS WILL BE THE ONE TO DRIVE HIM. CM WILL CONTINUE TO FOLLOW AND ASSIST WITH DC PLANNING Metal Tile Lather: Emmy Bardales DCPIA - Discharge Planning Initial Assessment Updated by [id number]: Emmy Bardales on 07/14/18 12:31 pm * Is the patient Alert and Oriented? Yes * How many steps to enter\exit or inside your home? * PCP SAE * Pharmacy [facility] * Preadmission Environment Home with Family * ADLs Independent * Equipment None * List name and contact numbers for known caregivers / representatives who currently or will assist patient after discharge: ZAYDA () [phone] * Verbal permission to speak to the caregivers and representatives has been obtained from the patient. Yes * Community resources currently utilized None * Additional services required to return to the preadmission environment? No * Can the patient safely return to the preadmission environment? Yes * Has this patient been hospitalized within the prior 30 days at any hospital? No Coverage Notice Reviewer: [id number] Alyse Bardales Notice Issued Date-Time: 08/04/2018 10:40 Notice Type: IM Discharge Notice Notice Delivered To: Family Member Relationship to Patient: Spouse Civil Litigation Attorney Name: ELDER ROSALES Delivery Method: HAND - Hand Delivered Maegan Days: Prior Verbal Notification: Recipient Understood Notice: Yes Recipient Signature: Yes Med Rec Note Co-signed by Attending: Coverage Notice Comment: Reviewer: [id number] - Emmy Bardales Notice Issued Date-Time: 08/14/2018 11:50 Notice Type: IM Discharge Notice Notice Delivered To: Family Member Relationship to Patient: Spouse Civil Litigation Attorney Name: ZAYDA Delivery Method: HAND - Hand Delivered Maegan Days: Prior Verbal Notification: Recipient Understood Notice: Yes Recipient Signature: Yes Med Rec Note Co-signed by Attending: Coverage Notice Comment: Last DP export: 08/14/18 11:01 Patient Name: DELFINO ROSALES Page 92738 at 1208 All edits/amendments must be made on the electronic document DICTATION DATE: 08/14/181207 SHOTGUN SHELL ASSEMBLY MACHINE ADJUSTER: DEMARCUS 08/14/181207 RPT#: [id number] DC DATE: STATUS: ADM IN [address] [place] [address] END OF REPORT
--- NOTE | ~2018-07-13 | MORECARE ---
CASE MANAGEMENT DISCHARGE SUMMARY PATIENT: DELFINO ROSALES UNIT: [id number] ADM DATE: 07/13/18 AGE: 73 : 46 SEX: M ROOM/BED: D.2203 AUTHOR: GUALBERTO,DOC PHYSICIAN: REFERRING PHYSICIAN: ALEXANDRO QUEVEDO MD DATE OF SERVICE: 08/05/18 Discharge Plan Patient Name: DELFINO ROSALES Facility: [facility]:[place] : 1945 Planned Disposition: Home Anticipated Discharge Date: Discharge Date: Expected LOS: Initial Reviewer: [id number] Initial Review Date: 07/13/2018 Generated: 08/05/18 1:54 pm Comments DCP- Discharge Planning Updated by [id number]: Emmy Bardales on 08/05/18 11:[address] CALLED MARTHA AT [facility] [facility] TO LET HER KNOW THAT HE WAS NOT DISCHARGING HOME TODAY, SHE WAS MOVING HIM TO FRIDAY'S SCHEDULE INCASE HE WENT HOME TOMORROW CM WILL CONTINUE TO FOLLOW DCP- Discharge Planning Updated by [email or web address]: Emmy Bardales on 08/04/18 11:[address] SPOKE WITH ONDINA WITH [facility] PATIENT, ORDER SENT OVER CM WILL CONTINUE TO FOLLOW AND ASSIST DCP- Discharge Planning Updated by [id number]: Emmy Bardales on 08/04/18 10:[address] SPOKE WITH PATIENT AND ABOUT DC PLANNING, THEY WOULD LIKE HOME HEALTH AND PT WHEN THEY ARE DISCHARGED. YONI WITH [facility]. HE WILL NEED HOME O2, BSC, WALKER, ? NEBULIER. CM WILL CONTINUE TO FOLLOW AND ASSIST WITH DC PLANNING, SENT REFERRAL TO [facility] AND SPOKE WITH MARTHA IMM SERVED AND EXPLAINED DCP- Discharge Planning Updated by [email or web address]: Linette Gómez on 07/25/18 12:[address] LATE ENTRY 1000 AND SISTER IN LAW REQUESTED WITNESS FOR LIVING WILL AND HEALTH CARE PROXY. CM AND ER CMMARGE, WENT TO THE ROOM. PATIENT IS AWAKE AND ORIENTED TO PERSON, PLACE AND TIME. IS SLOW TO ANSWER, CM READ THE PAPERWORK REGARDING WISHES FOR MEDICAL TREATMENT OPTIONS. HIS AND SISTER IN LAW USUALLY ANSWERED THE QUESTIONS BEFORE THE PATIENT. CM ADVISED HE MUST HIS CHOICES KNOWN. HE SIGNED THE 2 FORMS REGARDING HIS CARE CHOICES. WITNESSED BY CUSTOMER CONSULTING MANAGER. THREE COPIES MADE AND ALL COPIES GIVEN TO THE AT HER REQUEST. DCP- Discharge Planning Updated by [id number]: Emmy Bardales on 07/14/18 12:[address] Patient Name: DELFINO ROSALES Admission Status: Elective Accout number: [id number] Admission Date: 07-13-2018 : 1945 Admission Diagnosis: Attending: ALEXANDRO QUEVEDO Current LOS: 1 Anticipated DC Date: Planned Disposition: Home Primary Insurance: [employer] Discharge Planning Comments: CM MET WITH PATIENT AND TO ASSESS DISCHARGE PLANNING NEEDS. PATIENT LIVES INDEPENDENLTY AT HOME WITH HIS WHERE HE PLANS TO RETURN. HE STATED THAT HE DENIES ANY DME OR COMMUNITY RESOURCES AT THIS TIME. HE STATES HIS HOME IS SAFE TO RETURN AND HIS WILL BE THE ONE TO DRIVE HIM. CM WILL CONTINUE TO FOLLOW AND ASSIST WITH DC PLANNING Loading Checker: Emmy Bardales DCPIA - Discharge Planning Initial Assessment Updated by [email or web address]: Emmy Bardales on 07/14/18 12:31 pm * Is the patient Alert and Oriented? Yes * How many steps to enter\exit or inside your home? * PCP SAE * Pharmacy [facility] * Preadmission Environment Home with Family * ADLs Independent * Equipment None * List name and contact numbers for known caregivers / representatives who currently or will assist patient after discharge: ZAYDA () [phone] * Verbal permission to speak to the caregivers and representatives has been obtained from the patient. Yes * Community resources currently utilized None * Additional services required to return to the preadmission environment? No * Can the patient safely return to the preadmission environment? Yes * Has this patient been hospitalized within the prior 30 days at any hospital? No Coverage Notice Reviewer: [id number] - Emmy Bardales Notice Issued Date-Time: 08/04/2018 10:40 Notice Type: IM Discharge Notice Notice Delivered To: Family Member Relationship to Patient: Spouse Agricultural Sciences Professor Name: ELDER ROSALES Delivery Method: HAND - Hand Delivered Maegan Days: Prior Verbal Notification: Recipient Understood Notice: Yes Recipient Signature: Yes Med Rec Note Co-signed by Attending: Coverage Notice Comment: Last DP export: 08/04/18 11:27 Patient Name: DELFINO ROSALES Page 44800 at 1254 All edits/amendments must be made on the electronic document DICTATION DATE: 08/05/181252 STRATEGIC ACCOUNT MANAGER: DEMARCUS 08/05/18 125 RPT#: [id number] DC DATE: STATUS: ADM IN [facility] [address] [place] [address] END OF REPORT
--- NOTE | ~2018-07-13 | HEMODYNAMI ---
PATIENT:DELFINO ROSALES MEDICAL RECORD: [id number] : 47 LOCATION:D.MS [address]3 ADMISSION DATE: 07/13/18 Generatedon:08/07/20189:50 Patient name: DELFINO ROSALES Patient #: [id number] SSN: : 1945 Date of study: 08/07/2018 Page: Of Hemodynamic Procedure Report Patient Data Patient Demographics Procedure consent was obtained First Name: DELFINO Gender: Male Last Name: BOBBY : 1945 Middle Initial: G Age: 73 year(s) Patient #: [id number] Race: Unknown Additional ID: [id number] Contact details [address]: [address] [place] [address] State: [place] City: [place] Zip code: [address] Past Medical History Allergies: No known allergies Admission Admission Data Admission Date: 07/13/2018 Admission Time: 10:48 Room #: D.2203 Procedure Procedure Types Cath Procedure Peripheral Cath Diagnostic Procedure Miscellaneous Procedure Description Procedure Date Procedure Date: 08/07/2018 Procedure Start Time: 9:02 Procedure Staff Name Function Harjit Stacia RT Monitor Carmine Asencio MD Performing Physician Karon Damon RN Nurse Procedure Data Cath Procedure Fluoroscopy Diagnostic fluoroscopy Total fluoroscopy Time: 0.1 time: 0.1 min min Diagnostic fluoroscopy Total fluoroscopy dose: 31 dose: 31 mGy mGy Contrast Material Contrast Material Type Amount (ml) Isovue 300 15 Hemodynamics Rest Pre Cath Intra NCS Post Cath Procedure Log Time Note 8:57:52 Karon Damon RN sent for patient. Start room use. 8:58:05 Time tracking: Regular hours (M-F 7:00 - 5:00) 8:58:12 Patient received from Med/Surg to IR Alert and oriented. Tansferred to table in Supine position. 8:58:17 Correct patient and procedure confirmed by team. 8:58:18 Correct patient and procedure confirmed by team. 8:58:20 Signed procedure consent form obtained from patient. 8:58:21 8:58:33 Patient allergic to No known allergies 9:01:53 Physician arrived 9:01:54 --------ALL STOP TIME OUT------ 9:02:06 Left chest site verified by team. 9:02:16 Procedure started. 9:02:17 Full Disclosure recording started 9:44:32 Procedure ended.(Physican Out) 9:45:38 Fluoroscopy time 00.10 minutes. 9:45:42 Fluoroscopy dose: 31 mGy 9:45:42 Flurop Dose total: 31 9:45:47 Contrast amount:Isovue 300 15ml. 9:46:17 site left accessesd and flushed 9:46:21 Report given to Med/Surg. 9:46:30 Patient transfered to Med/Surg with Bed. 9:47:02 Full Disclosure recording stopped Signature Audit Caputa Stage Time Signature Unsigned Intra-Procedure 08/07/2018 Harjit Palomo RT 9:46:56 AM Stacia RT (R) (CV) 08/07/2018 (R) (CV) 9:50:04 AM Intra-Procedure 08/07/2018 Harjit 9:50:47 AM Stacia RT (R) (CV) Signatures Monitor : Harjit Signature : Stacia RT Date : Time : [facility] [address] [place] [address]
--- NOTE | ~2018-07-13 | MORECARE ---
CASE MANAGEMENT DISCHARGE SUMMARY PATIENT: DELFINO ROSALES UNIT: [id number] ADM DATE: 07/13/18 AGE: 73 : 47 SEX: M ROOM/BED: D.2203 AUTHOR: GUALBERTO,DOC PHYSICIAN: REFERRING PHYSICIAN: ALEXANDRO QUEVEDO MD DATE OF SERVICE: 08/14/18 Discharge Plan Patient Name: DELFINO ROSALES Facility: [facility]:[place] : 1945 Planned Disposition: Home Anticipated Discharge Date: Discharge Date: Expected LOS: Initial Reviewer: [email or web address] Initial Review Date: 07/13/2018 Generated: 08/14/18 3:01 pm Comments DCP- Discharge Planning Updated by [id number]: Emmy Bardales on 08/14/18 12:[address] [facility] here speaking with patient and family DCP- Discharge Planning Updated by [email or web address]: Emmy Bardales on 08/14/18 11:[address] Ольга with [facility] stated that Janie will be here at 1:30. Family informed DCP- Discharge Planning Updated by [email or web address]: Emmy Bardales on 08/14/18 11:[address] PATIENT AND FAMILY WOULD LIKE TO GO TO HOSPICE. THEY WOULD LIKE TO USE [facility], I CALLED AND SPOKE WITH ОЛЬГА FOR THE REFERRAL AND THEY WILL CALL ME BACK WITH A TIME THAT THEY WILL MEET WITH FAMILY IMM SERVED DCP- Discharge Planning Updated by [email or web address]: Scarlett Ibarra on 08/13/18 2:[address] Received a call from Dariela at [facility], she needs updated PT notes for insurance, I faxed them to her. CM will continue to follow and assist with discharge planning/needs. DCP- Discharge Planning Updated by [id number]: Emmy Bardales on 08/13/18 10:[address] Martha with [facility] called back and stated that they are waiting on auth for insurance. CM will continue to follow DCP- Discharge Planning Updated by [email or web address]: Emmy Bardales on 08/13/18 8:[address] CALLED [facility] FOR UPDATE ON PATIENT, LM FOR MARTHA TO CALL ME BACK DCP- Discharge Planning Updated by [id number]: Emmy Bardales on 08/12/18 1:[address] Sent clinicals to the [facility], they notified me today that they do not accept this insurance, Spoke with family they would like to send referral to [facility]. Will send referral DCP- Discharge Planning Updated by [id number]: Emmy Bardales on 08/11/18 3:[address] SPOKE WITH AND PATIENT ABOUT [facility]. GAVE THEM OPTIONS AND THEY WILL LET ME KNOW EHICH ONE THEY WOULD LIKE TO SEND CLINICALS TO. CM WILL CONTINUE TO FOLLOW AND ASSIST WITH DC PLANNING DCP- Discharge Planning Updated by [id number]: Emmy Bardales on 08/05/18 11:[address] CALLED MARTHA AT [facility] TO LET HER KNOW THAT HE WAS NOT DISCHARGING HOME TODAY, SHE WAS MOVING HIM TO FRIDAY'S SCHEDULE INCASE HE WENT HOME TOMORROW CM WILL CONTINUE TO FOLLOW DCP- Discharge Planning Updated by [id number]: Emmy Bardales on 08/04/18 11:[address] SPOKE WITH ONDINA WITH [facility] PATIENT, ORDER SENT OVER CM WILL CONTINUE TO FOLLOW AND ASSIST DCP- Discharge Planning Updated by [id number]: Emmy Bardales on 08/04/18 10:[address] SPOKE WITH PATIENT AND ABOUT DC PLANNING, THEY WOULD LIKE HOME HEALTH AND PT WHEN THEY ARE DISCHARGED. YONI WITH [facility] AND [facility]. HE WILL NEED HOME O2, BSC, WALKER, ? NEBULIER. CM WILL CONTINUE TO FOLLOW AND ASSIST WITH DC PLANNING, SENT REFERRAL TO [facility] AND SPOKE WITH MARTHA IMM SERVED AND EXPLAINED DCP- Discharge Planning Updated by [email or web address]: Linette Gómez on 07/25/18 12:[address] LATE ENTRY 1000 AND SISTER IN LAW REQUESTED WITNESS FOR LIVING WILL AND HEALTH CARE PROXY. CM AND ER CM, MARGE, WENT TO THE ROOM. PATIENT IS AWAKE AND ORIENTED TO PERSON, PLACE AND TIME. IS SLOW TO ANSWER, CM READ THE PAPERWORK REGARDING WISHES FOR MEDICAL TREATMENT OPTIONS. HIS AND SISTER IN LAW USUALLY ANSWERED THE QUESTIONS BEFORE THE PATIENT. CM ADVISED HE MUST HIS CHOICES KNOWN. HE SIGNED THE 2 FORMS REGARDING HIS CARE CHOICES. WITNESSED BY STARCH DUMPER. THREE COPIES MADE AND ALL COPIES GIVEN TO THE AT HER REQUEST. DCP- Discharge Planning Updated by [id number]: Emmy Bardales on 07/14/18 12:[address] Patient Name: DELFINO ROSALES Admission Status: Elective Accout number: [id number] Admission Date: 07-13-2018 : 1945 Admission Diagnosis: Attending: AELXANDRO QUEVEDO Current LOS: 1 Anticipated DC Date: Planned Disposition: Home Primary Insurance: [employer] Discharge Planning Comments: CM MET WITH PATIENT AND TO ASSESS DISCHARGE PLANNING NEEDS. PATIENT LIVES INDEPENDENLTY AT HOME WITH HIS WHERE HE PLANS TO RETURN. HE STATED THAT HE DENIES ANY DME OR COMMUNITY RESOURCES AT THIS TIME. HE STATES HIS HOME IS SAFE TO RETURN AND HIS WILL BE THE ONE TO DRIVE HIM. CM WILL CONTINUE TO FOLLOW AND ASSIST WITH DC PLANNING Manager Hotel: Emmy Bardales DCPIA - Discharge Planning Initial Assessment Updated by [id number]: Emmy Bardales on 07/14/18 12:31 pm * Is the patient Alert and Oriented? Yes * How many steps to enter\exit or inside your home? * PCP SAE * Pharmacy [facility] * Preadmission Environment Home with Family * ADLs Independent * Equipment None * List name and contact numbers for known caregivers / representatives who currently or will assist patient after discharge: ZAYDA () [phone] * Verbal permission to speak to the caregivers and representatives has been obtained from the patient. Yes * Community resources currently utilized None * Additional services required to return to the preadmission environment? No * Can the patient safely return to the preadmission environment? Yes * Has this patient been hospitalized within the prior 30 days at any hospital? No Coverage Notice Reviewer: [id number] Alyse Bardales Notice Issued Date-Time: 08/04/2018 10:40 Notice Type: IM Discharge Notice Notice Delivered To: Family Member Relationship to Patient: Spouse Pipe Organ Technician Name: ELDER ROSALES Delivery Method: HAND - Hand Delivered Maegan Days: Prior Verbal Notification: Recipient Understood Notice: Yes Recipient Signature: Yes Med Rec Note Co-signed by Attending: Coverage Notice Comment: Reviewer: [id number] Alyse Bardales Notice Issued Date-Time: 08/14/2018 11:50 Notice Type: IM Discharge Notice Notice Delivered To: Family Member Relationship to Patient: Spouse Pipe Organ Technician Name: ZAYDA Delivery Method: HAND - Hand Delivered Maegan Days: Prior Verbal Notification: Recipient Understood Notice: Yes Recipient Signature: Yes Med Rec Note Co-signed by Attending: Coverage Notice Comment: Last DP export: 08/14/18 11:50 Patient Name: DELFINO ROSALES Page 43475 at 1402 All edits/amendments must be made on the electronic document DICTATION DATE: 08/14/181400 PORCELAIN BUILDUP ASSISTANT: DEMARCUS 08/14/18 140 RPT#: [id number] DC DATE: STATUS: ADM IN [facility] [address] [place] [address] END OF REPORT
--- NOTE | ~2018-07-13 | MORECARE ---
CASE MANAGEMENT DISCHARGE SUMMARY PATIENT: DELFINO ROSALES UNIT: [id number] ADM DATE: 07/13/18 AGE: 73 : 47 SEX: M ROOM/BED: D.2203 AUTHOR: GUALBERTO,DOC PHYSICIAN: REFERRING PHYSICIAN: ALEXANDRO QUEVEDO MD DATE OF SERVICE: 08/13/18 Discharge Plan Patient Name: DELFINO ROSALES Facility: [facility]:[place] : 1945 Planned Disposition: Home Anticipated Discharge Date: Discharge Date: Expected LOS: Initial Reviewer: [email or web address] Initial Review Date: 07/13/2018 Generated: 08/13/18 12:51 pm Comments DCP- Discharge Planning Updated by [email or web address]: Emmy Bardales on 08/13/18 10:[address] Martha with [facility] called back and stated that they are waiting on auth for insurance. CM will continue to follow DCP- Discharge Planning Updated by [email or web address]: Emmy Bardales on 08/13/18 8:[address] CALLED [facility] FOR UPDATE ON PATIENT, LM FOR MARTHA TO CALL ME BACK DCP- Discharge Planning Updated by [email or web address]: Emmy Bardales on 08/12/18 1:[address] Sent clinicals to the [facility], they notified me today that they do not accept this insurance, Spoke with family they would like to send referral to [facility]. Will send referral DCP- Discharge Planning Updated by [id number]: Emmy Bardales on 08/11/18 3:[address] SPOKE WITH AND PATIENT ABOUT [facility]. GAVE THEM OPTIONS AND THEY WILL LET ME KNOW EHICH ONE THEY WOULD LIKE TO SEND CLINICALS TO. CM WILL CONTINUE TO FOLLOW AND ASSIST WITH DC PLANNING DCP- Discharge Planning Updated by [id number]: Emmy Bardales on 08/05/18 11:[address] CALLED MARTHA AT [facility] TO LET HER KNOW THAT HE WAS NOT DISCHARGING HOME TODAY, SHE WAS MOVING HIM TO FRIDAY'S SCHEDULE INCASE HE WENT HOME TOMORROW CM WILL CONTINUE TO FOLLOW DCP- Discharge Planning Updated by [id number]: Emmy Bardales on 08/04/18 11:[address] SPOKE WITH ONDINA WITH [facility] PATIENT, ORDER SENT OVER CM WILL CONTINUE TO FOLLOW AND ASSIST DCP- Discharge Planning Updated by [email or web address]: Emmy Bardales on 08/04/18 10:[address] SPOKE WITH PATIENT AND ABOUT DC PLANNING, THEY WOULD LIKE HOME HEALTH AND PT WHEN THEY ARE DISCHARGED. YONI WITH [facility] AND [facility] #2. HE WILL NEED HOME O2, BSC, WALKER, ? NEBULIER. CM WILL CONTINUE TO FOLLOW AND ASSIST WITH DC PLANNING, SENT REFERRAL TO [facility] AND SPOKE WITH MARTHA AVALOS SERVED AND EXPLAINED DCP- Discharge Planning Updated by [email or web address]: Linette Gómez on 07/25/18 12:[address] LATE ENTRY 1000 AND SISTER IN LAW REQUESTED WITNESS FOR LIVING WILL AND HEALTH CARE PROXY. CM AND ER CM, MARGE, WENT TO THE ROOM. PATIENT IS AWAKE AND ORIENTED TO PERSON, PLACE AND TIME. IS SLOW TO ANSWER, CM READ THE PAPERWORK REGARDING WISHES FOR MEDICAL TREATMENT OPTIONS. HIS AND SISTER IN LAW USUALLY ANSWERED THE QUESTIONS BEFORE THE PATIENT. CM ADVISED HE MUST HIS CHOICES KNOWN. HE SIGNED THE 2 FORMS REGARDING HIS CARE CHOICES. WITNESSED BY ARCHITECTURAL REPRESENTATIVE. THREE COPIES MADE AND ALL COPIES GIVEN TO THE AT HER REQUEST. DCP- Discharge Planning Updated by [id number]: Emmy Bardales on 07/14/18 12:[address] Patient Name: DELFINO ROSALES Admission Status: Elective Accout number: [id number] Admission Date: 07-13-2018 : 1945 Admission Diagnosis: Attending: ALEXANDRO QUEVEDO Current LOS: 1 Anticipated DC Date: Planned Disposition: Home Primary Insurance: [employer] Discharge Planning Comments: CM MET WITH PATIENT AND TO ASSESS DISCHARGE PLANNING NEEDS. PATIENT LIVES INDEPENDENLTY AT HOME WITH HIS WHERE HE PLANS TO RETURN. HE STATED THAT HE DENIES ANY DME OR COMMUNITY RESOURCES AT THIS TIME. HE STATES HIS HOME IS SAFE TO RETURN AND HIS WILL BE THE ONE TO DRIVE HIM. CM WILL CONTINUE TO FOLLOW AND ASSIST WITH DC PLANNING Bankruptcy Manager: Emmy Bardales DCPIA - Discharge Planning Initial Assessment Updated by [email or web address]: Emmy Bardales on 07/14/18 12:31 pm * Is the patient Alert and Oriented? Yes * How many steps to enter\exit or inside your home? * PCP SAE * Pharmacy [facility] * Preadmission Environment Home with Family * ADLs Independent * Equipment None * List name and contact numbers for known caregivers / representatives who currently or will assist patient after discharge: ZAYDA () [phone] * Verbal permission to speak to the caregivers and representatives has been obtained from the patient. Yes * Community resources currently utilized None * Additional services required to return to the preadmission environment? No * Can the patient safely return to the preadmission environment? Yes * Has this patient been hospitalized within the prior 30 days at any hospital? No Coverage Notice Reviewer: [id number] Alyse Bardales Notice Issued Date-Time: 08/04/2018 10:40 Notice Type: IM Discharge Notice Notice Delivered To: Family Member Relationship to Patient: Spouse Oral Surgery Technician Name: ELDER ROSALES Delivery Method: HAND - Hand Delivered Maegan Days: Prior Verbal Notification: Recipient Understood Notice: Yes Recipient Signature: Yes Med Rec Note Co-signed by Attending: Coverage Notice Comment: Last DP export: 08/13/18 9:03 Patient Name: DELFINO ROSALES Page 63942 at 1151 All edits/amendments must be made on the electronic document DICTATION DATE: 08/13/18 1151 PROSTHETIC MAKEUP DESIGNER: DEMARCUS 08/13/18 1151 RPT#: [id number] DC DATE: STATUS: ADM IN [facility] [address] [place] [address] END OF REPORT
--- NOTE | ~2018-07-13 | MORECARE ---
CASE MANAGEMENT DISCHARGE SUMMARY PATIENT: DELFINO ROSALES UNIT: [id number] ADM DATE: 07/13/18 AGE: 73 : 47 SEX: M ROOM/BED: D.2203 AUTHOR: GUALBERTO,DOC PHYSICIAN: REFERRING PHYSICIAN: ALEXANDRO QUEVEDO MD DATE OF SERVICE: 08/14/18 Discharge Plan Patient Name: DELFINO ROSALES Facility: [facility]:[place] : 1945 Planned Disposition: Home Anticipated Discharge Date: Discharge Date: Expected LOS: Initial Reviewer: [id number] Initial Review Date: 07/13/2018 Generated: 08/14/18 1:50 pm Comments DCP- Discharge Planning Updated by [email or web address]: Emmy Bardales on 08/14/18 11:[address] Ольга with [facility] stated that Janie will be here at 1:30. Family informed DCP- Discharge Planning Updated by [email or web address]: Emmy Bardales on 08/14/18 11:[address] PATIENT AND FAMILY WOULD LIKE TO GO TO HOSPICE. THEY WOULD LIKE TO USE [facility], I CALLED AND SPOKE WITH ОЛЬГА FOR THE REFERRAL AND THEY WILL CALL ME BACK WITH A TIME THAT THEY WILL MEET WITH FAMILY IMM SERVED DCP- Discharge Planning Updated by [id number]: Scarlett Humphreysbipin on 08/13/18 2:[address] Received a call from Dariela at [facility], she needs updated PT notes for insurance, I faxed them to her. CM will continue to follow and assist with discharge planning/needs. DCP- Discharge Planning Updated by [id number]: Emmy Bardales on 08/13/18 10:[address] Martha with [facility] called back and stated that they are waiting on auth for insurance. CM will continue to follow DCP- Discharge Planning Updated by [id number]: Emmy Bardales on 08/13/18 8:[address] CALLED [facility] FOR UPDATE ON PATIENT, LM FOR MARTHA TO CALL ME BACK DCP- Discharge Planning Updated by [email or web address]: Emmy Bardales on 08/12/18 1:[address] Sent clinicals to the [facility], they notified me today that they do not accept this insurance, Spoke with family they would like to send referral to [facility]. Will send referral DCP- Discharge Planning Updated by [id number]: Emmy Bardales on 08/11/18 3:[address] SPOKE WITH AND PATIENT ABOUT [facility]. GAVE THEM OPTIONS AND THEY WILL LET ME KNOW EHICH ONE THEY WOULD LIKE TO SEND CLINICALS TO. CM WILL CONTINUE TO FOLLOW AND ASSIST WITH DC PLANNING DCP- Discharge Planning Updated by [email or web address]: Emmy Bardales on 08/05/18 11:[address] CALLED MARTHA AT [facility] TO LET HER KNOW THAT HE WAS NOT DISCHARGING HOME TODAY, SHE WAS MOVING HIM TO FRIDAY'S SCHEDULE INCASE HE WENT HOME TOMORROW CM WILL CONTINUE TO FOLLOW DCP- Discharge Planning Updated by [id number]: Emmy Bardales on 08/04/18 11:[address] SPOKE WITH ONDINA WITH [facility] PATIENT, ORDER SENT OVER CM WILL CONTINUE TO FOLLOW AND ASSIST DCP- Discharge Planning Updated by [id number]: Emmy Bardales on 08/04/18 10:[address] SPOKE WITH PATIENT AND ABOUT DC PLANNING, THEY WOULD LIKE HOME HEALTH AND PT WHEN THEY ARE DISCHARGED. YONI WITH [facility] AND [facility]. HE WILL NEED HOME O2, BSC, WALKER, ? NEBULIER. CM WILL CONTINUE TO FOLLOW AND ASSIST WITH DC PLANNING, SENT REFERRAL TO [facility] AND SPOKE WITH MARTHA AVALOS SERVED AND EXPLAINED DCP- Discharge Planning Updated by [email or web address]: Linette Gómez on 07/25/18 12:[address] LATE ENTRY 1000 AND SISTER IN LAW REQUESTED WITNESS FOR LIVING WILL AND HEALTH CARE PROXY. CM AND ER CMMARGE, WENT TO THE ROOM. PATIENT IS AWAKE AND ORIENTED TO PERSON, PLACE AND TIME. IS SLOW TO ANSWER, CM READ THE PAPERWORK REGARDING WISHES FOR MEDICAL TREATMENT OPTIONS. HIS AND SISTER IN LAW USUALLY ANSWERED THE QUESTIONS BEFORE THE PATIENT. CM ADVISED HE MUST HIS CHOICES KNOWN. HE SIGNED THE 2 FORMS REGARDING HIS CARE CHOICES. WITNESSED BY STEAM CRANE OPERATOR. THREE COPIES MADE AND ALL COPIES GIVEN TO THE AT HER REQUEST. DCP- Discharge Planning Updated by [id number]: Emmy Bardales on 07/14/18 12:[address] Patient Name: DELFINO ROSALES Admission Status: Elective Accout number: [id number] Admission Date: 07-13-2018 : 091945 Admission Diagnosis: Attending: ALEXANDRO QUEVEDO Current LOS: 1 Anticipated DC Date: Planned Disposition: Home Primary Insurance: [employer] Discharge Planning Comments: CM MET WITH PATIENT AND TO ASSESS DISCHARGE PLANNING NEEDS. PATIENT LIVES INDEPENDENLTY AT HOME WITH HIS WHERE HE PLANS TO RETURN. HE STATED THAT HE DENIES ANY DME OR COMMUNITY RESOURCES AT THIS TIME. HE STATES HIS HOME IS SAFE TO RETURN AND HIS WILL BE THE ONE TO DRIVE HIM. CM WILL CONTINUE TO FOLLOW AND ASSIST WITH DC PLANNING Environmental Intern: Emmy Bardales DCPIA - Discharge Planning Initial Assessment Updated by [email or web address]: Emmy Bardales on 07/14/18 12:31 pm * Is the patient Alert and Oriented? Yes * How many steps to enter\exit or inside your home? * PCP SAE * Pharmacy [facility] * Preadmission Environment Home with Family * ADLs Independent * Equipment None * List name and contact numbers for known caregivers / representatives who currently or will assist patient after discharge: ZAYDA () [phone] * Verbal permission to speak to the caregivers and representatives has been obtained from the patient. Yes * Community resources currently utilized None * Additional services required to return to the preadmission environment? No * Can the patient safely return to the preadmission environment? Yes * Has this patient been hospitalized within the prior 30 days at any hospital? No Coverage Notice Reviewer: [id number] Alyse Bardales Notice Issued Date-Time: 08/04/2018 10:40 Notice Type: IM Discharge Notice Notice Delivered To: Family Member Relationship to Patient: Spouse Hospice Physician Name: ELDER ROSALES Delivery Method: HAND - Hand Delivered Maegan Days: Prior Verbal Notification: Recipient Understood Notice: Yes Recipient Signature: Yes Med Rec Note Co-signed by Attending: Coverage Notice Comment: Reviewer: [id number] Alyse Bardales Notice Issued Date-Time: 08/14/2018 11:50 Notice Type: IM Discharge Notice Notice Delivered To: Family Member Relationship to Patient: Spouse Hospice Physician Name: ZAYDA Delivery Method: HAND - Hand Delivered Maegan Days: Prior Verbal Notification: Recipient Understood Notice: Yes Recipient Signature: Yes Med Rec Note Co-signed by Attending: Coverage Notice Comment: Last DP export: 08/14/18 11:29 Patient Name: DELFINO ROSALES Page [id number] at 1250 All edits/amendments must be made on the electronic document DICTATION DATE: 08/14/181248 COMMERCIAL INSTALLER: DEMARCUS 08/14/181248 RPT#: [id number] DC DATE: STATUS: ADM IN [facility] [address] [place] [address] END OF REPORT
--- NOTE | ~2018-07-13 | MORECARE ---
CASE MANAGEMENT DISCHARGE SUMMARY PATIENT: DELFINO ROSALES UNIT: [id number] ADM DATE: 07/13/18 AGE: 73 : 47 SEX: M ROOM/BED: D.2203 AUTHOR: GUALBERTO,DOC PHYSICIAN: REFERRING PHYSICIAN: ALEXANDRO QUEVEDO MD DATE OF SERVICE: 08/13/18 Discharge Plan Patient Name: DELFINO ROSALES Facility: [facility]:[place] : 1945 Planned Disposition: Home Anticipated Discharge Date: Discharge Date: Expected LOS: Initial Reviewer: [id number] Initial Review Date: 07/13/2018 Generated: 08/13/18 4:53 pm Comments DCP- Discharge Planning Updated by [id number]: Scarlett Fred on 08/13/18 2:[address] Received a call from Dariela at [facility], she needs updated PT notes for insurance, I faxed them to her. CM will continue to follow and assist with discharge planning/needs. DCP- Discharge Planning Updated by [email or web address]: Emmy Bardales on 08/13/18 10:[address] Martha with [facility] called back and stated that they are waiting on auth for insurance. CM will continue to follow DCP- Discharge Planning Updated by [email or web address]: Emmy Bardales on 08/13/18 8:[address] CALLED [facility] FOR UPDATE ON PATIENT, LM FOR MARTHA TO CALL ME BACK DCP- Discharge Planning Updated by [email or web address]: Emmy Bardales on 08/12/18 1:[address] Sent clinicals to the [facility], they notified me today that they do not accept this insurance, Spoke with family they would like to send referral to [facility]. Will send referral DCP- Discharge Planning Updated by [id number]: Emmy Bardales on 08/11/18 3:[address] SPOKE WITH AND PATIENT ABOUT SKILLED REHAB. GAVE THEM OPTIONS AND THEY WILL LET ME KNOW EHICH ONE THEY WOULD LIKE TO SEND CLINICALS TO. CM WILL CONTINUE TO FOLLOW AND ASSIST WITH DC PLANNING DCP- Discharge Planning Updated by [email or web address]: Emmy Bardales on 08/05/18 11:[address] CALLED MARTHA AT [facility] TO LET HER KNOW THAT HE WAS NOT DISCHARGING HOME TODAY, SHE WAS MOVING HIM TO FRIDAY'S SCHEDULE INCASE HE WENT HOME TOMORROW CM WILL CONTINUE TO FOLLOW DCP- Discharge Planning Updated by [id number]: Emmy Bardales on 08/04/18 11:[address] SPOKE WITH ONDINA WITH [facility] PATIENT, ORDER SENT OVER CM WILL CONTINUE TO FOLLOW AND ASSIST DCP- Discharge Planning Updated by [id number]: Emmy Bardales on 08/04/18 10:[address] SPOKE WITH PATIENT AND ABOUT DC PLANNING, THEY WOULD LIKE HOME HEALTH AND PT WHEN THEY ARE DISCHARGED. YONI WITH [facility] AND [facility]. HE WILL NEED HOME O2, BSC, WALKER, ? NEBULIER. CM WILL CONTINUE TO FOLLOW AND ASSIST WITH DC PLANNING, SENT REFERRAL TO [facility] AND SPOKE WITH MARTHA IMM SERVED AND EXPLAINED DCP- Discharge Planning Updated by [id number]: Linette Gómez on 07/25/18 12:[address] LATE ENTRY 1000 AND SISTER IN LAW REQUESTED WITNESS FOR LIVING WILL AND HEALTH CARE PROXY. CM AND ER CMMARGE, WENT TO THE ROOM. PATIENT IS AWAKE AND ORIENTED TO PERSON, PLACE AND TIME. IS SLOW TO ANSWER, CM READ THE PAPERWORK REGARDING WISHES FOR MEDICAL TREATMENT OPTIONS. HIS AND SISTER IN LAW USUALLY ANSWERED THE QUESTIONS BEFORE THE PATIENT. CM ADVISED HE MUST HIS CHOICES KNOWN. HE SIGNED THE 2 FORMS REGARDING HIS CARE CHOICES. WITNESSED BY HYDROMETEOROLOGICAL TECHNICIAN. THREE COPIES MADE AND ALL COPIES GIVEN TO THE AT HER REQUEST. DCP- Discharge Planning Updated by [email or web address]: Emmy Catia on 07/14/18 12:[address] Patient Name: DELFINO ROSALES Admission Status: Elective Accout number: [id number] Admission Date: 07-13-2018 : 1945 Admission Diagnosis: Attending: ALEXANDRO QUEVEDO Current LOS: 1 Anticipated DC Date: Planned Disposition: Home Primary Insurance: [employer] Discharge Planning Comments: CM MET WITH PATIENT AND TO ASSESS DISCHARGE PLANNING NEEDS. PATIENT LIVES INDEPENDENLTY AT HOME WITH HIS WHERE HE PLANS TO RETURN. HE STATED THAT HE DENIES ANY DME OR COMMUNITY RESOURCES AT THIS TIME. HE STATES HIS HOME IS SAFE TO RETURN AND HIS WILL BE THE ONE TO DRIVE HIM. CM WILL CONTINUE TO FOLLOW AND ASSIST WITH DC PLANNING Road Monkey: Emmy Bardales DCPIA - Discharge Planning Initial Assessment Updated by [email or web address]: Emmy Bardales on 07/14/18 12:31 pm * Is the patient Alert and Oriented? Yes * How many steps to enter\exit or inside your home? * PCP SAE * Pharmacy [facility] * Preadmission Environment Home with Family * ADLs Independent * Equipment None * List name and contact numbers for known caregivers / representatives who currently or will assist patient after discharge: ZAYDA () [phone] * Verbal permission to speak to the caregivers and representatives has been obtained from the patient. Yes * Community resources currently utilized None * Additional services required to return to the preadmission environment? No * Can the patient safely return to the preadmission environment? Yes * Has this patient been hospitalized within the prior 30 days at any hospital? No Coverage Notice Reviewer: [id number] - Emmy Bardales Notice Issued Date-Time: 08/04/2018 10:40 Notice Type: IM Discharge Notice Notice Delivered To: Family Member Relationship to Patient: Spouse Appliance Assembler Name: ELDER ROSALES Delivery Method: HAND - Hand Delivered Maegan Days: Prior Verbal Notification: Recipient Understood Notice: Yes Recipient Signature: Yes Med Rec Note Co-signed by Attending: Coverage Notice Comment: Last DP export: 08/13/18 10:51 Patient Name: DELFINO ROSALES Page [id number] at 1553 All edits/amendments must be made on the electronic document DICTATION DATE: 08/13/18 155 ECONOMIC DEVELOPMENT SPECIALIST: DEMARCUS 08/13/18 155 RPT#: [id number] DC DATE: STATUS: ADM IN [facility] [address] [place] [address] END OF REPORT
[2018-07-13 14:41] LABS: BASOPHILS 0.5 % (0-2); HEMATOCRIT 40.8 % (42.0-54.0); HEMOGLOBIN 14.7 g/dL (13.5-17.5); IMMATURE GRANULOCYTES 0.3 % (0-5); LYMPHOCYTES 21.2 % (15-50); MCH 33.1 pg (26.0-34.0); MCV 91.9 fL (80.0-100.0); MEAN PLATELET VOLUME 9.2 fL (7.4-10.4); MONOCYTES 7.3 % (2-11); NEUTROPHILS 68.7 % (40-80); PLATELET COUNT 167 10x3/uL (130-400); RBC 4.44 10x6/uL (4.20-6.10); RDW 13.3 % (11.5-14.5); WBC 7.4 10x3/uL (4.8-10.8)
[2018-07-13 15:01] LABS: ALBUMIN 3.2 g/dL (3.4-5.0); ALKALINE PHOSPHATASE 61 U/L (46-116); ALT (SGPT) 23 U/L (10-68); BILIRUBIN - TOTAL 0.61 mg/dL (0.2-1.3); CALC OSMOLALITY 256 mosm/kg (275-300); CALCIUM 8.8 mg/dL (8.5-10.1); CARBON DIOXIDE 23.8 mmol/L (21.0-32.0); CHLORIDE - SERUM 94 mmol/L (98-107); CREATININE - SERUM 0.9 mg/dL (0.6-1.3); GLUCOSE 90 mg/dL (74-106); POTASSIUM - SERUM 3.5 mmol/L (3.5-5.1); PROTEIN - SERUM 6.8 g/dL (6.4-8.2); SODIUM 129 mmol/L (136-145); UREA NITROGEN 6 mg/dL (7-18); eGFR NON AFRICAN AMERICAN 88 mL/min (90-120)
[2018-07-13 15:02] VITALS: BP 139/67; BMI 21.3
[2018-07-13 15:30] VITALS: BP 117/71
[2018-07-13 21:47] VITALS: BP 118/61
[2018-07-14 04:44] LABS: BASOPHILS 0 % (0-2); EOSINOPHILS 0 % (0-7); HEMATOCRIT 39.2 % (42.0-54.0); HEMOGLOBIN 14.3 g/dL (13.5-17.5); LYMPHOCYTES 15.4 % (15-50); MCH 33.3 pg (26.0-34.0); MCHC 36.5 g/dL (31.0-37.0); MCV 91.4 fL (80.0-100.0); MEAN PLATELET VOLUME 9.4 fL (7.4-10.4); MONOCYTES 4.2 % (2-11); NEUTROPHILS 80.4 % (40-80); PLATELET COUNT 161 10x3/uL (130-400); RBC 4.29 10x6/uL (4.20-6.10); RDW 13.3 % (11.5-14.5)
[2018-07-14 04:46] LABS: WBC 3.3 10x3/uL (4.8-10.8)
[2018-07-14 04:55] LABS: APTT 28.2 SECONDS (22.8-39.4); INR 1.05 (0.85-1.17); PROTIME 13.3 SECONDS (11.6-15.0)
[2018-07-14 04:58] LABS: ALBUMIN 3.1 g/dL (3.4-5.0); ALKALINE PHOSPHATASE 59 U/L (46-116); ALT (SGPT) 23 U/L (10-68); BILIRUBIN - TOTAL 0.45 mg/dL (0.2-1.3); CALCIUM 8.5 mg/dL (8.5-10.1); CARBON DIOXIDE 22.5 mmol/L (21.0-32.0); CHLORIDE - SERUM 96 mmol/L (98-107); POTASSIUM - SERUM 3.9 mmol/L (3.5-5.1); PROTEIN - SERUM 6.7 g/dL (6.4-8.2); SODIUM 129 mmol/L (136-145); eGFR NON AFRICAN AMERICAN 78 mL/min (90-120)
[2018-07-14 05:05] LABS: CALC OSMOLALITY 258 mosm/kg (275-300); GLUCOSE 137 mg/dL (74-106); UREA NITROGEN 8 mg/dL (7-18)
[2018-07-14 05:43] VITALS: BP 114/73
[2018-07-14 08:30] VITALS: BP 136/75
[2018-07-14 10:29] VITALS: BMI 21.2
[2018-07-14 13:27] VITALS: BP 112/70
[2018-07-14 15:45] VITALS: BP 112/54
[2018-07-14 17:41] VITALS: Ht 172.7 cm; Wt 63.5 kg
[2018-07-14 20:49] VITALS: BP 104/56
[2018-07-15 00:35] VITALS: BP 110/62
[2018-07-15 04:42] VITALS: BP 101/49
[2018-07-15 05:52] LABS: BASOPHILS 0.1 % (0-2); EOSINOPHILS 0 % (0-7); HEMATOCRIT 37.2 % (42.0-54.0); HEMOGLOBIN 13.2 g/dL (13.5-17.5); IMMATURE GRANULOCYTES 0.4 % (0-5); LYMPHOCYTES 9.6 % (15-50); MCH 33.3 pg (26.0-34.0); MCHC 35.5 g/dL (31.0-37.0); MEAN PLATELET VOLUME 9.8 fL (7.4-10.4); MONOCYTES 8.7 % (2-11); NEUTROPHILS 81.2 % (40-80); RBC 3.96 10x6/uL (4.20-6.10); RDW 13.9 % (11.5-14.5)
[2018-07-15 05:53] LABS: MCV 93.9 fL (80.0-100.0); PLATELET COUNT 213 10x3/uL (130-400); WBC 13.1 10x3/uL (4.8-10.8)
[2018-07-15 06:16] LABS: ALBUMIN 3.5 g/dL (3.4-5.0); ANION GAP 18.3 mmol/L (8-16); BILIRUBIN - TOTAL 0.39 mg/dL (0.2-1.3); CALCIUM 8.9 mg/dL (8.5-10.1); CARBON DIOXIDE 20.4 mmol/L (21.0-32.0); POTASSIUM - SERUM 3.7 mmol/L (3.5-5.1); PROTEIN - SERUM 7.5 g/dL (6.4-8.2)
[2018-07-15 06:18] LABS: CREATININE - SERUM 1.3 mg/dL (0.6-1.3)
[2018-07-15 08:33] VITALS: BP 113/65
[2018-07-15 12:45] VITALS: BP 107/50
[2018-07-15 14:22] LABS: OSMOLALITY - SERUM 267 (280-301)
[2018-07-15 22:16] VITALS: BP 114/72
[2018-07-16 04:58] VITALS: BP 133/66
[2018-07-16 06:00] LABS: BASOPHILS 0 % (0-2); EOSINOPHILS 0 % (0-7); HEMATOCRIT 31.2 % (42.0-54.0); HEMOGLOBIN 11.1 g/dL (13.5-17.5); IMMATURE GRANULOCYTES 0.2 % (0-5); LYMPHOCYTES 8.8 % (15-50); MCH 32.5 pg (26.0-34.0); MCHC 35.6 g/dL (31.0-37.0); MEAN PLATELET VOLUME 9.3 fL (7.4-10.4); MONOCYTES 9.5 % (2-11); NEUTROPHILS 81.5 % (40-80); RBC 3.42 10x6/uL (4.20-6.10); RDW 13.7 % (11.5-14.5); WBC 10.4 10x3/uL (4.8-10.8)
[2018-07-16 06:34] LABS: MCV 91.2 fL (80.0-100.0); PLATELET COUNT 151 10x3/uL (130-400)
[2018-07-16 06:38] LABS: ALBUMIN 3.1 g/dL (3.4-5.0); ALKALINE PHOSPHATASE 45 U/L (46-116); ALT (SGPT) 30 U/L (10-68); BILIRUBIN - TOTAL 0.74 mg/dL (0.2-1.3); CALC OSMOLALITY 244 mosm/kg (275-300); CALCIUM 8.2 mg/dL (8.5-10.1); CARBON DIOXIDE 21.7 mmol/L (21.0-32.0); CHLORIDE - SERUM 89 mmol/L (98-107); GLUCOSE 112 mg/dL (74-106); POTASSIUM - SERUM 3.9 mmol/L (3.5-5.1); PROTEIN - SERUM 6.3 g/dL (6.4-8.2); SODIUM 121 mmol/L (136-145); UREA NITROGEN 13 mg/dL (7-18); eGFR NON AFRICAN AMERICAN 78 mL/min (90-120)
[2018-07-16 11:00] VITALS: BP 118/61
[2018-07-16 16:33] VITALS: BP 104/64
[2018-07-16 21:26] VITALS: BP 168/97
[2018-07-17 05:11] VITALS: BP 111/71
[2018-07-17 06:24] LABS: BASOPHILS 0 % (0-2); EOSINOPHILS 0 % (0-7); HEMATOCRIT 31.3 % (42.0-54.0); HEMOGLOBIN 11.2 g/dL (13.5-17.5); IMMATURE GRANULOCYTES 0.5 % (0-5); LYMPHOCYTES 9.6 % (15-50); MCH 32.8 pg (26.0-34.0); MCHC 35.8 g/dL (31.0-37.0); MCV 91.8 fL (80.0-100.0); MEAN PLATELET VOLUME 9.8 fL (7.4-10.4); MONOCYTES 13.3 % (2-11); NEUTROPHILS 76.6 % (40-80); PLATELET COUNT 164 10x3/uL (130-400); RBC 3.41 10x6/uL (4.20-6.10); RDW 13.8 % (11.5-14.5); WBC 8.1 10x3/uL (4.8-10.8)
[2018-07-17 06:25] LABS: ALBUMIN 3.2 g/dL (3.4-5.0); ALKALINE PHOSPHATASE 47 U/L (46-116); ALT (SGPT) 35 U/L (10-68); BILIRUBIN - TOTAL 0.86 mg/dL (0.2-1.3); CALCIUM 8.4 mg/dL (8.5-10.1); CARBON DIOXIDE 21.8 mmol/L (21.0-32.0); CHLORIDE - SERUM 87 mmol/L (98-107); CREATININE - SERUM 0.9 mg/dL (0.6-1.3); GLUCOSE 104 mg/dL (74-106); POTASSIUM - SERUM 4.3 mmol/L (3.5-5.1); PROTEIN - SERUM 6.2 g/dL (6.4-8.2); UREA NITROGEN 13 mg/dL (7-18); eGFR NON AFRICAN AMERICAN 88 mL/min (90-120)
[2018-07-17 06:33] LABS: CALC OSMOLALITY 241 mosm/kg (275-300)
[2018-07-17 06:34] LABS: SODIUM 120 mmol/L (136-145)
[2018-07-17 08:23] VITALS: BP 110/61
[2018-07-17 10:15] VITALS: BP 103/61
[2018-07-17 12:13] VITALS: BP 117/62
[2018-07-17 14:22] LABS: IMMUNOGLOBULIN E 1717 IU/mL (0-100)
[2018-07-17 16:23] VITALS: BP 121/70
[2018-07-17 21:18] VITALS: BP 128/74
[2018-07-18 07:02] LABS: BASOPHILS 0.1 % (0-2); EOSINOPHILS 1.7 % (0-7); HEMATOCRIT 30.5 % (42.0-54.0); HEMOGLOBIN 10.7 g/dL (13.5-17.5); LYMPHOCYTES 10.2 % (15-50); MCH 32.9 pg (26.0-34.0); MCHC 35.1 g/dL (31.0-37.0); MEAN PLATELET VOLUME 9.6 fL (7.4-10.4); MONOCYTES 12.9 % (2-11); NEUTROPHILS 74.1 % (40-80); PLATELET COUNT 158 10x3/uL (130-400); RBC 3.25 10x6/uL (4.20-6.10)
[2018-07-18 07:11] LABS: MCV 93.8 fL (80.0-100.0); WBC 10.5 10x3/uL (4.8-10.8)
[2018-07-18 07:31] LABS: ALBUMIN 2.9 g/dL (3.4-5.0); ALKALINE PHOSPHATASE 40 U/L (46-116); ALT (SGPT) 37 U/L (10-68); BILIRUBIN - TOTAL 0.79 mg/dL (0.2-1.3); CALC OSMOLALITY 251 mosm/kg (275-300); CALCIUM 7.9 mg/dL (8.5-10.1); CARBON DIOXIDE 22.4 mmol/L (21.0-32.0); CHLORIDE - SERUM 92 mmol/L (98-107); CREATININE - SERUM 0.9 mg/dL (0.6-1.3); GLUCOSE 74 mg/dL (74-106); PROTEIN - SERUM 6.1 g/dL (6.4-8.2); SODIUM 125 mmol/L (136-145); UREA NITROGEN 14 mg/dL (7-18); eGFR NON AFRICAN AMERICAN 88 mL/min (90-120)
[2018-07-18 09:17] VITALS: BP 127/65
[2018-07-18 12:43] VITALS: BP 111/55
[2018-07-18 17:00] VITALS: BP 104/54
[2018-07-18 20:43] VITALS: BP 132/64
[2018-07-19 00:44] VITALS: BP 116/40
[2018-07-19 04:00] VITALS: BP 103/51
[2018-07-19 06:09] LABS: BASOPHILS 0.1 % (0-2); EOSINOPHILS 0 % (0-7); HEMATOCRIT 29.6 % (42.0-54.0); HEMOGLOBIN 10.2 g/dL (13.5-17.5); IMMATURE GRANULOCYTES 0.6 % (0-5); LYMPHOCYTES 3.6 % (15-50); MCH 32.7 pg (26.0-34.0); MCHC 34.5 g/dL (31.0-37.0); MCV 94.9 fL (80.0-100.0); MONOCYTES 9.9 % (2-11); NEUTROPHILS 85.8 % (40-80); PLATELET COUNT 135 10x3/uL (130-400); RBC 3.12 10x6/uL (4.20-6.10); RDW 14.1 % (11.5-14.5); WBC 8.3 10x3/uL (4.8-10.8)
[2018-07-19 06:22] LABS: CALC OSMOLALITY 255 mosm/kg (275-300); CALCIUM 8.2 mg/dL (8.5-10.1); CARBON DIOXIDE 20.7 mmol/L (21.0-32.0); CHLORIDE - SERUM 95 mmol/L (98-107); CREATININE - SERUM 0.7 mg/dL (0.6-1.3); POTASSIUM - SERUM 4.3 mmol/L (3.5-5.1); SODIUM 126 mmol/L (136-145); UREA NITROGEN 17 mg/dL (7-18); eGFR NON AFRICAN AMERICAN > 90 mL/min (90-120)
[2018-07-19 06:34] LABS: GLUCOSE 115 mg/dL (74-106)
[2018-07-19 08:17] VITALS: BP 131/65
[2018-07-19 11:56] VITALS: BP 136/73
[2018-07-19 16:07] VITALS: BP 127/60
[2018-07-19 20:00] VITALS: BP 93/61
[2018-07-20 01:00] VITALS: BP 110/51
[2018-07-20 06:39] LABS: BASOPHILS 0 % (0-2); EOSINOPHILS 0 % (0-7); HEMATOCRIT 30.7 % (42.0-54.0); HEMOGLOBIN 10.7 g/dL (13.5-17.5); IMMATURE GRANULOCYTES 0.7 % (0-5); LYMPHOCYTES 4.5 % (15-50); MCH 32.8 pg (26.0-34.0); MCHC 34.9 g/dL (31.0-37.0); MCV 94.2 fL (80.0-100.0); MEAN PLATELET VOLUME 9.3 fL (7.4-10.4); MONOCYTES 9.4 % (2-11); NEUTROPHILS 85.4 % (40-80); PLATELET COUNT 142 10x3/uL (130-400); RBC 3.26 10x6/uL (4.20-6.10); RDW 13.8 % (11.5-14.5); WBC 8.2 10x3/uL (4.8-10.8)
[2018-07-20 06:57] LABS: CALC OSMOLALITY 255 mosm/kg (275-300); CARBON DIOXIDE 23.7 mmol/L (21.0-32.0); CHLORIDE - SERUM 94 mmol/L (98-107); CREATININE - SERUM 0.8 mg/dL (0.6-1.3); GLUCOSE 139 mg/dL (74-106); POTASSIUM - SERUM 4.2 mmol/L (3.5-5.1); SODIUM 125 mmol/L (136-145); UREA NITROGEN 18 mg/dL (7-18); eGFR NON AFRICAN AMERICAN > 90 mL/min (90-120)
[2018-07-20 08:12] VITALS: BP 141/66
[2018-07-20 13:04] VITALS: BP 109/66
[2018-07-20 16:33] VITALS: BP 117/63
[2018-07-20 20:00] VITALS: BP 112/68
[2018-07-21 08:30] VITALS: BP 139/73
[2018-07-21 11:52] LABS: BASOPHILS 0.1 % (0-2); EOSINOPHILS 0 % (0-7); HEMATOCRIT 33.8 % (42.0-54.0); HEMOGLOBIN 11.6 g/dL (13.5-17.5); IMMATURE GRANULOCYTES 0.7 % (0-5); LYMPHOCYTES 6.6 % (15-50); MCH 32.6 pg (26.0-34.0); MCHC 34.3 g/dL (31.0-37.0); MCV 94.9 fL (80.0-100.0); MEAN PLATELET VOLUME 9.4 fL (7.4-10.4); MONOCYTES 4.4 % (2-11); NEUTROPHILS 88.2 % (40-80); PLATELET COUNT 128 10x3/uL (130-400); RBC 3.56 10x6/uL (4.20-6.10); RDW 14.1 % (11.5-14.5); WBC 10.9 10x3/uL (4.8-10.8)
[2018-07-21 12:04] LABS: CALC OSMOLALITY 259 mosm/kg (275-300); CALCIUM 7.9 mg/dL (8.5-10.1); CARBON DIOXIDE 23.8 mmol/L (21.0-32.0); CHLORIDE - SERUM 96 mmol/L (98-107); CREATININE - SERUM 0.9 mg/dL (0.6-1.3); GLUCOSE 119 mg/dL (74-106); POTASSIUM - SERUM 4.2 mmol/L (3.5-5.1); SODIUM 128 mmol/L (136-145); UREA NITROGEN 19 mg/dL (7-18); eGFR NON AFRICAN AMERICAN 88 mL/min (90-120)
[2018-07-21 12:45] VITALS: BP 106/61
[2018-07-21 16:22] VITALS: BP 98/59
[2018-07-21 20:41] VITALS: BP 100/58
[2018-07-22 04:52] VITALS: BP 124/64
[2018-07-22 05:33] LABS: BASOPHILS 0 % (0-2); EOSINOPHILS 0 % (0-7); HEMATOCRIT 31.9 % (42.0-54.0); IMMATURE GRANULOCYTES 0.8 % (0-5); LYMPHOCYTES 5.3 % (15-50); MCH 32.4 pg (26.0-34.0); MCHC 34.5 g/dL (31.0-37.0); MCV 93.8 fL (80.0-100.0); MEAN PLATELET VOLUME 9.5 fL (7.4-10.4); MONOCYTES 10.1 % (2-11); NEUTROPHILS 83.8 % (40-80); PLATELET COUNT 129 10x3/uL (130-400); RDW 13.8 % (11.5-14.5)
[2018-07-22 05:40] LABS: WBC 7.3 10x3/uL (4.8-10.8)
[2018-07-22 05:49] LABS: CALC OSMOLALITY 263 mosm/kg (275-300); CALCIUM 8.3 mg/dL (8.5-10.1); CARBON DIOXIDE 25.4 mmol/L (21.0-32.0); CHLORIDE - SERUM 97 mmol/L (98-107); CREATININE - SERUM 0.8 mg/dL (0.6-1.3); GLUCOSE 126 mg/dL (74-106); POTASSIUM - SERUM 4.3 mmol/L (3.5-5.1); SODIUM 129 mmol/L (136-145); UREA NITROGEN 21 mg/dL (7-18); eGFR NON AFRICAN AMERICAN > 90 mL/min (90-120)
[2018-07-22 09:06] VITALS: BP 120/73
[2018-07-22 13:14] VITALS: BP 95/60
[2018-07-22 16:35] VITALS: BP 112/72
[2018-07-22 17:59] VITALS: BP 134/70
[2018-07-22 21:32] VITALS: BP 119/69
[2018-07-23 04:58] LABS: BASOPHILS 0.1 % (0-2); EOSINOPHILS 0 % (0-7); HEMATOCRIT 33.2 % (42.0-54.0); HEMOGLOBIN 11.5 g/dL (13.5-17.5); IMMATURE GRANULOCYTES 1.2 % (0-5); LYMPHOCYTES 5.6 % (15-50); MCH 32.7 pg (26.0-34.0); MCHC 34.6 g/dL (31.0-37.0); MCV 94.3 fL (80.0-100.0); MEAN PLATELET VOLUME 9.8 fL (7.4-10.4); MONOCYTES 10.6 % (2-11); NEUTROPHILS 82.5 % (40-80); PLATELET COUNT 113 10x3/uL (130-400); RBC 3.52 10x6/uL (4.20-6.10); RDW 13.9 % (11.5-14.5)
[2018-07-23 05:05] LABS: WBC 9.7 10x3/uL (4.8-10.8)
[2018-07-23 05:19] VITALS: BP 128/63
[2018-07-23 05:20] LABS: ALBUMIN 2.5 g/dL (3.4-5.0); ALKALINE PHOSPHATASE 38 U/L (46-116); ALT (SGPT) 163 U/L (10-68); BILIRUBIN - TOTAL 0.86 mg/dL (0.2-1.3); CALC OSMOLALITY 261 mosm/kg (275-300); CALCIUM 7.9 mg/dL (8.5-10.1); CARBON DIOXIDE 25.6 mmol/L (21.0-32.0); CHLORIDE - SERUM 95 mmol/L (98-107); CREATININE - SERUM 0.8 mg/dL (0.6-1.3); GLUCOSE 102 mg/dL (74-106); PROTEIN - SERUM 5.7 g/dL (6.4-8.2); SODIUM 129 mmol/L (136-145); UREA NITROGEN 22 mg/dL (7-18); URIC ACID 2.4 mg/dL (2.6-7.2); eGFR NON AFRICAN AMERICAN > 90 mL/min (90-120)
[2018-07-23 08:30] VITALS: BP 123/69
[2018-07-23 12:45] VITALS: BP 107/61
[2018-07-23 17:06] VITALS: BP 116/74
[2018-07-23 19:47] VITALS: BP 108/62
[2018-07-24] VITALS (10 sets, daily range): BP systolic 97–125; BP diastolic 53–72
[2018-07-25 01:05] VITALS: BP 110/68
[2018-07-25 06:45] LABS: BASOPHILS 0 % (0-2); EOSINOPHILS 0 % (0-7); HEMATOCRIT 34.3 % (42.0-54.0); HEMOGLOBIN 11.9 g/dL (13.5-17.5); LYMPHOCYTES 3.8 % (15-50); MCH 32.4 pg (26.0-34.0); MCHC 34.7 g/dL (31.0-37.0); MCV 93.5 fL (80.0-100.0); MEAN PLATELET VOLUME 9.7 fL (7.4-10.4); NEUTROPHILS 89.2 % (40-80); RBC 3.67 10x6/uL (4.20-6.10); RDW 13.8 % (11.5-14.5); WBC 8.2 10x3/uL (4.8-10.8)
[2018-07-25 07:07] LABS: PLATELET COUNT 83 10x3/uL (130-400)
[2018-07-25 07:08] LABS: ALBUMIN 2.5 g/dL (3.4-5.0); ALKALINE PHOSPHATASE 40 U/L (46-116); ALT (SGPT) 202 U/L (10-68); BILIRUBIN - TOTAL 0.96 mg/dL (0.2-1.3); CALC OSMOLALITY 258 mosm/kg (275-300); CALCIUM 7.8 mg/dL (8.5-10.1); CARBON DIOXIDE 25.2 mmol/L (21.0-32.0); CHLORIDE - SERUM 93 mmol/L (98-107); CREATININE - SERUM 0.9 mg/dL (0.6-1.3); GLUCOSE 138 mg/dL (74-106); MAGNESIUM - SERUM 2.2 mg/dL (1.8-2.4); PHOSPHOROUS 3.9 mg/dL (2.5-4.9); POTASSIUM - SERUM 3.7 mmol/L (3.5-5.1); PROTEIN - SERUM 5.7 g/dL (6.4-8.2); SODIUM 126 mmol/L (136-145); UREA NITROGEN 25 mg/dL (7-18); eGFR NON AFRICAN AMERICAN 88 mL/min (90-120)
[2018-07-25 07:26] LABS: PLATELET ESTIMATE DECREASED
[2018-07-25 09:18] VITALS: BP 121/73
[2018-07-25 12:28] VITALS: BP 137/66
[2018-07-25 16:28] VITALS: BP 125/64
[2018-07-25 20:06] VITALS: BP 121/64
[2018-07-26 04:26] VITALS: BP 134/74
[2018-07-26 09:47] VITALS: BP 128/66
[2018-07-26 13:46] VITALS: BP 156/69
[2018-07-26 16:47] VITALS: BP 111/55
[2018-07-26 21:29] VITALS: BP 115/53
[2018-07-27 05:02] VITALS: BP 112/75
[2018-07-27 05:22] LABS: BASOPHILS 0 % (0-2); EOSINOPHILS 0 % (0-7); HEMATOCRIT 31.1 % (42.0-54.0); HEMOGLOBIN 11.1 g/dL (13.5-17.5); IMMATURE GRANULOCYTES 0.5 % (0-5); LYMPHOCYTES 5.4 % (15-50); MCH 32.8 pg (26.0-34.0); MCHC 35.7 g/dL (31.0-37.0); MEAN PLATELET VOLUME 10.1 fL (7.4-10.4); MONOCYTES 4.4 % (2-11); NEUTROPHILS 89.7 % (40-80); PLATELET COUNT 73 10x3/uL (130-400); RBC 3.38 10x6/uL (4.20-6.10); RDW 13.6 % (11.5-14.5); WBC 6.3 10x3/uL (4.8-10.8)
[2018-07-27 05:42] LABS: CALC OSMOLALITY 259 mosm/kg (275-300); CALCIUM 7.2 mg/dL (8.5-10.1); CARBON DIOXIDE 24.8 mmol/L (21.0-32.0); CHLORIDE - SERUM 94 mmol/L (98-107); CREATININE - SERUM 0.9 mg/dL (0.6-1.3); GLUCOSE 106 mg/dL (74-106); PHOSPHOROUS 3.1 mg/dL (2.5-4.9); POTASSIUM - SERUM 3.4 mmol/L (3.5-5.1); SODIUM 128 mmol/L (136-145); UREA NITROGEN 22 mg/dL (7-18); eGFR NON AFRICAN AMERICAN 88 mL/min (90-120)
[2018-07-27 08:32] VITALS: BP 120/79
[2018-07-27 17:17] VITALS: BP 117/58
[2018-07-27 21:11] VITALS: BP 103/61
[2018-07-28 05:18] VITALS: BP 127/65
[2018-07-28 08:35] VITALS: BP 129/69
[2018-07-28 11:44] VITALS: BP 139/64
[2018-07-28 16:39] VITALS: BP 123/66
[2018-07-28 21:11] VITALS: BP 134/68
[2018-07-29 03:39] VITALS: BP 123/70
[2018-07-29 06:03] LABS: BASOPHILS 0 % (0-2); EOSINOPHILS 0 % (0-7); HEMATOCRIT 33.8 % (42.0-54.0); IMMATURE GRANULOCYTES 0.5 % (0-5); MCH 32.6 pg (26.0-34.0); MCHC 35.5 g/dL (31.0-37.0); MCV 91.8 fL (80.0-100.0); MEAN PLATELET VOLUME 10.7 fL (7.4-10.4); NEUTROPHILS 92.5 % (40-80); RBC 3.68 10x6/uL (4.20-6.10); RDW 13.4 % (11.5-14.5); WBC 7.3 10x3/uL (4.8-10.8)
[2018-07-29 06:24] LABS: CALC OSMOLALITY 255 mosm/kg (275-300); CALCIUM 7.9 mg/dL (8.5-10.1); CARBON DIOXIDE 27.8 mmol/L (21.0-32.0); CHLORIDE - SERUM 91 mmol/L (98-107); CREATININE - SERUM 0.7 mg/dL (0.6-1.3); GLUCOSE 112 mg/dL (74-106); POTASSIUM - SERUM 3.5 mmol/L (3.5-5.1); SODIUM 125 mmol/L (136-145); UREA NITROGEN 22 mg/dL (7-18); eGFR NON AFRICAN AMERICAN > 90 mL/min (90-120)
[2018-07-29 06:49] LABS: PLATELET COUNT 42 10x3/uL (130-400)
[2018-07-29 09:03] VITALS: BP 132/69
[2018-07-29 12:36] VITALS: BP 111/59
[2018-07-29 16:52] VITALS: BP 111/61
[2018-07-29 20:00] VITALS: BP 118/59
[2018-07-30 03:00] VITALS: BP 103/77
[2018-07-30 07:03] LABS: BASOPHILS 0 % (0-2); EOSINOPHILS 0 % (0-7); HEMATOCRIT 33.2 % (42.0-54.0); HEMOGLOBIN 11.8 g/dL (13.5-17.5); IMMATURE GRANULOCYTES 1.1 % (0-5); LYMPHOCYTES 6.5 % (15-50); MCH 32.2 pg (26.0-34.0); MCHC 35.5 g/dL (31.0-37.0); MCV 90.7 fL (80.0-100.0); MEAN PLATELET VOLUME 11.6 fL (7.4-10.4); MONOCYTES 0.7 % (2-11); NEUTROPHILS 91.7 % (40-80); RBC 3.66 10x6/uL (4.20-6.10); RDW 13.2 % (11.5-14.5)
[2018-07-30 07:15] LABS: CALC OSMOLALITY 256 mosm/kg (275-300); CALCIUM 7.9 mg/dL (8.5-10.1); CARBON DIOXIDE 26.7 mmol/L (21.0-32.0); CHLORIDE - SERUM 92 mmol/L (98-107); CREATININE - SERUM 0.6 mg/dL (0.6-1.3); GLUCOSE 122 mg/dL (74-106); POTASSIUM - SERUM 3.4 mmol/L (3.5-5.1); SODIUM 126 mmol/L (136-145); UREA NITROGEN 22 mg/dL (7-18); eGFR NON AFRICAN AMERICAN > 90 mL/min (90-120)
[2018-07-30 07:36] LABS: PLATELET COUNT 31 10x3/uL (130-400)
[2018-07-30 08:57] VITALS: BP 100/58
[2018-07-30 12:46] VITALS: BP 118/61
[2018-07-30 17:26] VITALS: BP 93/54
[2018-07-30 21:55] VITALS: BP 114/60
[2018-07-31 06:37] VITALS: BP 104/49
[2018-07-31 08:40] LABS: BASOPHILS 0.1 % (0-2); EOSINOPHILS 0.1 % (0-7); HEMATOCRIT 34.4 % (42.0-54.0); HEMOGLOBIN 12.4 g/dL (13.5-17.5); IMMATURE GRANULOCYTES 3.3 % (0-5); LYMPHOCYTES 9.3 % (15-50); MCH 32.6 pg (26.0-34.0); MCV 90.5 fL (80.0-100.0); MEAN PLATELET VOLUME 10.1 fL (7.4-10.4); MONOCYTES 0.4 % (2-11); NEUTROPHILS 86.8 % (40-80); RDW 13.2 % (11.5-14.5); WBC 7.9 10x3/uL (4.8-10.8)
[2018-07-31 08:41] LABS: PLATELET COUNT 54 10x3/uL (130-400)
[2018-07-31 08:49] LABS: CALC OSMOLALITY 253 mosm/kg (275-300); CALCIUM 8.1 mg/dL (8.5-10.1); CARBON DIOXIDE 26.9 mmol/L (21.0-32.0); CHLORIDE - SERUM 91 mmol/L (98-107); CREATININE - SERUM 0.8 mg/dL (0.6-1.3); GLUCOSE 111 mg/dL (74-106); POTASSIUM - SERUM 3.5 mmol/L (3.5-5.1); SODIUM 124 mmol/L (136-145); UREA NITROGEN 20 mg/dL (7-18); eGFR NON AFRICAN AMERICAN > 90 mL/min (90-120)
[2018-07-31 09:12] VITALS: BP 116/66
[2018-07-31 12:00] VITALS: BP 146/70
[2018-07-31 16:33] VITALS: BP 108/59
[2018-07-31 22:08] VITALS: BP 121/58
[2018-08-01 06:01] LABS: BASOPHILS 0.2 % (0-2); EOSINOPHILS 0.1 % (0-7); HEMATOCRIT 36.2 % (42.0-54.0); IMMATURE GRANULOCYTES 3.3 % (0-5); LYMPHOCYTES 5.5 % (15-50); MCHC 35.9 g/dL (31.0-37.0); MCV 91.9 fL (80.0-100.0); MEAN PLATELET VOLUME 11.4 fL (7.4-10.4); MONOCYTES 0.4 % (2-11); NEUTROPHILS 90.5 % (40-80); RBC 3.94 10x6/uL (4.20-6.10); RDW 13.2 % (11.5-14.5); WBC 9.1 10x3/uL (4.8-10.8)
[2018-08-01 06:05] LABS: PLATELET COUNT 44 10x3/uL (130-400)
[2018-08-01 06:11] VITALS: BP 107/82
[2018-08-01 06:26] LABS: CALC OSMOLALITY 253 mosm/kg (275-300); CALCIUM 8.3 mg/dL (8.5-10.1); CARBON DIOXIDE 25.8 mmol/L (21.0-32.0); CHLORIDE - SERUM 89 mmol/L (98-107); GLUCOSE 121 mg/dL (74-106); POTASSIUM - SERUM 3.4 mmol/L (3.5-5.1); SODIUM 123 mmol/L (136-145); eGFR NON AFRICAN AMERICAN 78 mL/min (90-120)
[2018-08-01 06:31] LABS: UREA NITROGEN 27 mg/dL (7-18)
[2018-08-01 10:04] VITALS: BP 126/60
[2018-08-01 16:22] VITALS: BP 111/63
[2018-08-01 20:54] VITALS: BP 101/69
[2018-08-02 06:08] LABS: BASOPHILS 0 % (0-2); EOSINOPHILS 0 % (0-7); HEMATOCRIT 33.4 % (42.0-54.0); HEMOGLOBIN 11.9 g/dL (13.5-17.5); LYMPHOCYTES 11.9 % (15-50); MCH 32.4 pg (26.0-34.0); MCHC 35.6 g/dL (31.0-37.0); MEAN PLATELET VOLUME 9.9 fL (7.4-10.4); MONOCYTES 0.6 % (2-11); NEUTROPHILS 86.5 % (40-80); RBC 3.67 10x6/uL (4.20-6.10); RDW 13.1 % (11.5-14.5)
[2018-08-02 06:10] LABS: PLATELET COUNT 26 10x3/uL (130-400); WBC 3.1 10x3/uL (4.8-10.8)
[2018-08-02 06:23] LABS: CALC OSMOLALITY 259 mosm/kg (275-300); CALCIUM 8.1 mg/dL (8.5-10.1); CARBON DIOXIDE 21.1 mmol/L (21.0-32.0); CHLORIDE - SERUM 97 mmol/L (98-107); CREATININE - SERUM 0.8 mg/dL (0.6-1.3); GLUCOSE 139 mg/dL (74-106); POTASSIUM - SERUM 4.7 mmol/L (3.5-5.1); SODIUM 126 mmol/L (136-145); UREA NITROGEN 26 mg/dL (7-18); eGFR NON AFRICAN AMERICAN > 90 mL/min (90-120)
[2018-08-02 08:23] VITALS: BP 108/54
[2018-08-02 12:16] VITALS: BP 122/66
[2018-08-02 16:40] VITALS: BP 118/64
[2018-08-02 22:00] VITALS: BP 142/70
[2018-08-03 05:00] VITALS: BP 100/52
[2018-08-03 07:43] LABS: CALC OSMOLALITY 279 mosm/kg (275-300); CALCIUM 8.5 mg/dL (8.5-10.1); CARBON DIOXIDE 23.1 mmol/L (21.0-32.0); CHLORIDE - SERUM 103 mmol/L (98-107); CREATININE - SERUM 0.7 mg/dL (0.6-1.3); GLUCOSE 132 mg/dL (74-106); POTASSIUM - SERUM 4.2 mmol/L (3.5-5.1); SODIUM 136 mmol/L (136-145); UREA NITROGEN 28 mg/dL (7-18); eGFR NON AFRICAN AMERICAN > 90 mL/min (90-120)
[2018-08-03 08:39] VITALS: BP 95/52
[2018-08-03 08:47] LABS: HEMATOCRIT 31.2 % (42.0-54.0); HEMOGLOBIN 10.8 g/dL (13.5-17.5); MCH 32.5 pg (26.0-34.0); MCHC 34.6 g/dL (31.0-37.0); MEAN PLATELET VOLUME 10.6 fL (7.4-10.4); RBC 3.32 10x6/uL (4.20-6.10); RDW 13.4 % (11.5-14.5)
[2018-08-03 08:48] LABS: PLATELET COUNT 106 10x3/uL (130-400)
[2018-08-03 08:49] LABS: WBC 1.3 10x3/uL (4.8-10.8)
[2018-08-03 10:03] LABS: ANISOCYTOSIS OCC; BURR CELLS OCC; CRENATED CELLS 1+; LYMPHOCYTES 36 % (15-50); NEUTROPHILS 62 % (40-80); PLATELET ESTIMATE DECREASED; ROULEAUX OCC
[2018-08-03 12:41] VITALS: BP 99/51
[2018-08-03 19:04] VITALS: BP 116/63
[2018-08-03 20:33] VITALS: BP 116/63
[2018-08-04 02:35] VITALS: BP 125/64
[2018-08-04 05:01] VITALS: BP 134/60
[2018-08-04 09:22] LABS: BASOPHILS 0 % (0-2); EOSINOPHILS 2.4 % (0-7); HEMATOCRIT 33.8 % (42.0-54.0); HEMOGLOBIN 11.6 g/dL (13.5-17.5); IMMATURE GRANULOCYTES 0.8 % (0-5); LYMPHOCYTES 57.9 % (15-50); MCH 32.7 pg (26.0-34.0); MCHC 34.3 g/dL (31.0-37.0); MCV 95.2 fL (80.0-100.0); MEAN PLATELET VOLUME 9.9 fL (7.4-10.4); MONOCYTES 0.8 % (2-11); NEUTROPHILS 38.1 % (40-80); RBC 3.55 10x6/uL (4.20-6.10); RDW 13.4 % (11.5-14.5)
[2018-08-04 09:26] LABS: PLATELET COUNT 70 10x3/uL (130-400); WBC 1.3 10x3/uL (4.8-10.8)
[2018-08-04 09:59] VITALS: BP 134/68
[2018-08-04 21:33] VITALS: BP 137/74
[2018-08-05 01:19] LABS: BASOPHILS 0 % (0-2); EOSINOPHILS 0.8 % (0-7); HEMATOCRIT 33.1 % (42.0-54.0); HEMOGLOBIN 11.4 g/dL (13.5-17.5); IMMATURE GRANULOCYTES 4.7 % (0-5); LYMPHOCYTES 69.3 % (15-50); MCH 32.3 pg (26.0-34.0); MCHC 34.4 g/dL (31.0-37.0); MCV 93.8 fL (80.0-100.0); MEAN PLATELET VOLUME 9.7 fL (7.4-10.4); MONOCYTES 3.1 % (2-11); NEUTROPHILS 22.1 % (40-80); PLATELET COUNT 59 10x3/uL (130-400); RBC 3.53 10x6/uL (4.20-6.10); RDW 13.3 % (11.5-14.5)
[2018-08-05 01:21] LABS: WBC 1.3 10x3/uL (4.8-10.8)
[2018-08-05 01:38] VITALS: BP 95/62
[2018-08-05 01:41] LABS: CKMB 4.4 U/L (0.0-3.6); TROPONIN-I 0.053 ng/mL (0.000-0.060)
[2018-08-05 04:45] VITALS: BP 119/64
[2018-08-05 06:15] LABS: CALC OSMOLALITY 278 mosm/kg (275-300); CALCIUM 8.2 mg/dL (8.5-10.1); CARBON DIOXIDE 27.7 mmol/L (21.0-32.0); CHLORIDE - SERUM 102 mmol/L (98-107); CREATININE - SERUM 0.8 mg/dL (0.6-1.3); GLUCOSE 119 mg/dL (74-106); PHOSPHOROUS 3.6 mg/dL (2.5-4.9); SODIUM 136 mmol/L (136-145); UREA NITROGEN 30 mg/dL (7-18); eGFR NON AFRICAN AMERICAN > 90 mL/min (90-120)
[2018-08-05 06:17] LABS: POTASSIUM - SERUM 3.5 mmol/L (3.5-5.1)
[2018-08-05 06:21] LABS: BASOPHILS 0 % (0-2); EOSINOPHILS 1.1 % (0-7); HEMATOCRIT 31.7 % (42.0-54.0); HEMOGLOBIN 10.9 g/dL (13.5-17.5); LYMPHOCYTES 73.3 % (15-50); MCH 32.6 pg (26.0-34.0); MCHC 34.4 g/dL (31.0-37.0); MCV 94.9 fL (80.0-100.0); MEAN PLATELET VOLUME 10.4 fL (7.4-10.4); MONOCYTES 4.4 % (2-11); NEUTROPHILS 21.2 % (40-80); PLATELET COUNT 54 10x3/uL (130-400); RBC 3.34 10x6/uL (4.20-6.10); RDW 13.4 % (11.5-14.5)
[2018-08-05 06:25] LABS: WBC 0.9 10x3/uL (4.8-10.8)
[2018-08-05 08:36] VITALS: BP 103/47
[2018-08-05 12:24] VITALS: BP 122/67
[2018-08-05 16:00] VITALS: BP 107/55
[2018-08-05 20:12] VITALS: BP 117/63
[2018-08-06 01:20] VITALS: BP 102/53
[2018-08-06 06:28] LABS: BASOPHILS 0 % (0-2); EOSINOPHILS 1.2 % (0-7); HEMATOCRIT 30.4 % (42.0-54.0); HEMOGLOBIN 10.4 g/dL (13.5-17.5); IMMATURE GRANULOCYTES 1.2 % (0-5); LYMPHOCYTES 74.1 % (15-50); MCH 32.5 pg (26.0-34.0); MCHC 34.2 g/dL (31.0-37.0); MEAN PLATELET VOLUME 10.7 fL (7.4-10.4); MONOCYTES 8.2 % (2-11); NEUTROPHILS 15.3 % (40-80); RDW 13.4 % (11.5-14.5)
[2018-08-06 06:30] LABS: PLATELET COUNT 39 10x3/uL (130-400); WBC 0.9 10x3/uL (4.8-10.8)
[2018-08-06 08:53] VITALS: BP 129/71
[2018-08-06 12:44] VITALS: BP 105/55
[2018-08-06 16:38] VITALS: BP 94/54
[2018-08-06 20:00] VITALS: BP 152/70
[2018-08-06 23:48] VITALS: BP 132/68
[2018-08-07 04:00] VITALS: BP 120/64
[2018-08-07 04:13] LABS: BASOPHILS 0 % (0-2); EOSINOPHILS 1.6 % (0-7); HEMATOCRIT 29.6 % (42.0-54.0); HEMOGLOBIN 10.3 g/dL (13.5-17.5); LYMPHOCYTES 59.3 % (15-50); MCH 32.4 pg (26.0-34.0); MCHC 34.8 g/dL (31.0-37.0); MCV 93.1 fL (80.0-100.0); MEAN PLATELET VOLUME 10.6 fL (7.4-10.4); MONOCYTES 10.6 % (2-11); NEUTROPHILS 28.5 % (40-80); RBC 3.18 10x6/uL (4.20-6.10); RDW 13.3 % (11.5-14.5)
[2018-08-07 04:20] LABS: PLATELET COUNT 28 10x3/uL (130-400); WBC 1.2 10x3/uL (4.8-10.8)
[2018-08-07 04:30] LABS: ALBUMIN 2.3 g/dL (3.4-5.0); ALKALINE PHOSPHATASE 46 U/L (46-116); ALT (SGPT) 103 U/L (10-68); BILIRUBIN - TOTAL 1.06 mg/dL (0.2-1.3); CALC OSMOLALITY 278 mosm/kg (275-300); CALCIUM 8.3 mg/dL (8.5-10.1); CARBON DIOXIDE 26.8 mmol/L (21.0-32.0); CHLORIDE - SERUM 105 mmol/L (98-107); CREATININE - SERUM 0.7 mg/dL (0.6-1.3); GLUCOSE 79 mg/dL (74-106); PROTEIN - SERUM 5.4 g/dL (6.4-8.2); SODIUM 138 mmol/L (136-145); UREA NITROGEN 25 mg/dL (7-18); eGFR NON AFRICAN AMERICAN > 90 mL/min (90-120)
[2018-08-07 04:36] LABS: POTASSIUM - SERUM 3.2 mmol/L (3.5-5.1)
[2018-08-07 08:27] VITALS: BP 126/56
[2018-08-07 12:36] VITALS: BP 109/51
[2018-08-07 16:32] VITALS: BP 134/81
[2018-08-07 19:55] VITALS: BP 103/69
[2018-08-07 20:02] LABS: APPEARANCE CLEAR (CLEAR); BILIRUBIN NEGATIVE (NEGATIVE); COLOR YELLOW (YELLOW); GLUCOSE NEGATIVE (NEGATIVE); KETONE NEGATIVE (NEGATIVE); NITRITE NEGATIVE (NEGATIVE); PROTEIN NEGATIVE (NEGATIVE); UROBILINOGEN NORMAL (NORMAL)
[2018-08-08] VITALS: BP 126/60
[2018-08-08 04:00] VITALS: BP 120/64
[2018-08-08 07:15] LABS: BASOPHILS 0.2 % (0-2); HEMATOCRIT 29.6 % (42.0-54.0); HEMOGLOBIN 10.2 g/dL (13.5-17.5); IMMATURE GRANULOCYTES 1.5 % (0-5); MCH 32.1 pg (26.0-34.0); MCHC 34.5 g/dL (31.0-37.0); MCV 93.1 fL (80.0-100.0); MEAN PLATELET VOLUME 10.2 fL (7.4-10.4); MONOCYTES 10.8 % (2-11); NEUTROPHILS 56.5 % (40-80); PLATELET COUNT 62 10x3/uL (130-400); RBC 3.18 10x6/uL (4.20-6.10); RDW 13.2 % (11.5-14.5); WBC 4.1 10x3/uL (4.8-10.8)
[2018-08-08 07:24] LABS: CALC OSMOLALITY 277 mosm/kg (275-300); CALCIUM 8.6 mg/dL (8.5-10.1); CARBON DIOXIDE 23.7 mmol/L (21.0-32.0); CHLORIDE - SERUM 106 mmol/L (98-107); CREATININE - SERUM 0.6 mg/dL (0.6-1.3); POTASSIUM - SERUM 3.7 mmol/L (3.5-5.1); SODIUM 137 mmol/L (136-145); UREA NITROGEN 29 mg/dL (7-18); eGFR NON AFRICAN AMERICAN > 90 mL/min (90-120)
[2018-08-08 07:30] LABS: GLUCOSE 63 mg/dL (74-106)
[2018-08-08 08:48] VITALS: BP 124/67
[2018-08-08 13:06] VITALS: BP 116/59
[2018-08-08 16:00] VITALS: BP 103/58
[2018-08-08 20:30] VITALS: BP 118/65
[2018-08-09 00:30] VITALS: BP 118/71
[2018-08-09 04:30] VITALS: BP 110/55
[2018-08-09 05:55] LABS: BASOPHILS 0.6 % (0-2); EOSINOPHILS 0.2 % (0-7); HEMATOCRIT 28.7 % (42.0-54.0); IMMATURE GRANULOCYTES 5.1 % (0-5); MCH 32.4 pg (26.0-34.0); MCHC 34.8 g/dL (31.0-37.0); MCV 92.9 fL (80.0-100.0); MONOCYTES 13.5 % (2-11); NEUTROPHILS 65.6 % (40-80); PLATELET COUNT 54 10x3/uL (130-400); RBC 3.09 10x6/uL (4.20-6.10); RDW 13.5 % (11.5-14.5)
[2018-08-09 05:57] LABS: WBC 10.1 10x3/uL (4.8-10.8)
[2018-08-09 06:11] LABS: ALBUMIN 2.2 g/dL (3.4-5.0); ALKALINE PHOSPHATASE 66 U/L (46-116); ALT (SGPT) 106 U/L (10-68); CARBON DIOXIDE 23.3 mmol/L (21.0-32.0); CHLORIDE - SERUM 103 mmol/L (98-107); POTASSIUM - SERUM 3.4 mmol/L (3.5-5.1); PROTEIN - SERUM 5.4 g/dL (6.4-8.2); SODIUM 135 mmol/L (136-145); UREA NITROGEN 30 mg/dL (7-18)
[2018-08-09 06:13] LABS: CALC OSMOLALITY 275 mosm/kg (275-300); CREATININE - SERUM 0.8 mg/dL (0.6-1.3); GLUCOSE 96 mg/dL (74-106); eGFR NON AFRICAN AMERICAN > 90 mL/min (90-120)
[2018-08-09 08:35] VITALS: BP 102/57
[2018-08-09 15:05] VITALS: BP 86/49
[2018-08-09 16:06] VITALS: BP 111/57
[2018-08-09 20:00] VITALS: BP 116/63
[2018-08-10] VITALS: BP 127/65
[2018-08-10 05:00] VITALS: BP 102/54
[2018-08-10 05:15] LABS: BASOPHILS 0.5 % (0-2); EOSINOPHILS 0.1 % (0-7); HEMATOCRIT 28.5 % (42.0-54.0); HEMOGLOBIN 9.9 g/dL (13.5-17.5); IMMATURE GRANULOCYTES 16.7 % (0-5); LYMPHOCYTES 9.9 % (15-50); MCH 32.7 pg (26.0-34.0); MCHC 34.7 g/dL (31.0-37.0); MCV 94.1 fL (80.0-100.0); MEAN PLATELET VOLUME 10.6 fL (7.4-10.4); MONOCYTES 4.9 % (2-11); NEUTROPHILS 67.9 % (40-80); PLATELET COUNT 54 10x3/uL (130-400); RBC 3.03 10x6/uL (4.20-6.10); RDW 13.6 % (11.5-14.5)
[2018-08-10 05:16] LABS: WBC 16.6 10x3/uL (4.8-10.8)
[2018-08-10 05:33] LABS: ALBUMIN 2.1 g/dL (3.4-5.0); ALKALINE PHOSPHATASE 68 U/L (46-116); ALT (SGPT) 98 U/L (10-68); BILIRUBIN - TOTAL 0.65 mg/dL (0.2-1.3); CALC OSMOLALITY 268 mosm/kg (275-300); CALCIUM 7.7 mg/dL (8.5-10.1); CHLORIDE - SERUM 102 mmol/L (98-107); CREATININE - SERUM 0.7 mg/dL (0.6-1.3); GLUCOSE 95 mg/dL (74-106); POTASSIUM - SERUM 3.5 mmol/L (3.5-5.1); PROTEIN - SERUM 5.2 g/dL (6.4-8.2); SODIUM 133 mmol/L (136-145); UREA NITROGEN 20 mg/dL (7-18); eGFR NON AFRICAN AMERICAN > 90 mL/min (90-120)
[2018-08-10 08:01] VITALS: BP 105/55
[2018-08-10 12:32] VITALS: BP 103/55
[2018-08-10 15:58] VITALS: BP 93/49
[2018-08-10 21:21] VITALS: BP 90/58
[2018-08-11 00:35] VITALS: BP 114/64
[2018-08-11 06:34] LABS: ALBUMIN 2.2 g/dL (3.4-5.0); ALKALINE PHOSPHATASE 88 U/L (46-116); ALT (SGPT) 118 U/L (10-68); BILIRUBIN - TOTAL 0.56 mg/dL (0.2-1.3); CALC OSMOLALITY 267 mosm/kg (275-300); CALCIUM 8.1 mg/dL (8.5-10.1); CARBON DIOXIDE 24.7 mmol/L (21.0-32.0); CHLORIDE - SERUM 101 mmol/L (98-107); CREATININE - SERUM 0.6 mg/dL (0.6-1.3); GLUCOSE 72 mg/dL (74-106); POTASSIUM - SERUM 3.1 mmol/L (3.5-5.1); PROTEIN - SERUM 5.6 g/dL (6.4-8.2); SODIUM 134 mmol/L (136-145); eGFR NON AFRICAN AMERICAN > 90 mL/min (90-120)
[2018-08-11 06:35] VITALS: BP 159/77
[2018-08-11 06:35] LABS: UREA NITROGEN 14 mg/dL (7-18)
[2018-08-11 06:56] LABS: HEMOGLOBIN 10.7 g/dL (13.5-17.5)
[2018-08-11 08:03] LABS: MCH 32.4 pg (26.0-34.0); MCHC 34.5 g/dL (31.0-37.0); MCV 93.9 fL (80.0-100.0); MEAN PLATELET VOLUME 10.7 fL (7.4-10.4); PLATELET COUNT 58 10x3/uL (130-400); WBC 27.7 10x3/uL (4.8-10.8)
[2018-08-11 08:09] LABS: ANISOCYTOSIS OCC; LYMPHOCYTES 13 % (15-50); MONOCYTES 17 % (2-11); NEUTROPHILS 36 % (40-80); PLATELET ESTIMATE DECREASED
[2018-08-11 08:36] VITALS: BP 125/65
[2018-08-11 11:46] VITALS: BP 97/55
[2018-08-11 17:52] VITALS: BP 123/56
[2018-08-11 20:00] VITALS: BP 98/62
[2018-08-12 04:00] VITALS: BP 123/61
[2018-08-12 06:13] LABS: HEMATOCRIT 28.8 % (42.0-54.0); HEMOGLOBIN 9.9 g/dL (13.5-17.5); MCH 32.1 pg (26.0-34.0); MCHC 34.4 g/dL (31.0-37.0); MCV 93.5 fL (80.0-100.0); MEAN PLATELET VOLUME 10.8 fL (7.4-10.4); PLATELET COUNT 57 10x3/uL (130-400); RBC 3.08 10x6/uL (4.20-6.10); RDW 14.2 % (11.5-14.5)
[2018-08-12 06:45] LABS: ALKALINE PHOSPHATASE 75 U/L (46-116); ALT (SGPT) 102 U/L (10-68); BILIRUBIN - TOTAL 0.46 mg/dL (0.2-1.3); CALC OSMOLALITY 263 mosm/kg (275-300); CARBON DIOXIDE 24.1 mmol/L (21.0-32.0); CHLORIDE - SERUM 102 mmol/L (98-107); CREATININE - SERUM 0.7 mg/dL (0.6-1.3); GLUCOSE 76 mg/dL (74-106); POTASSIUM - SERUM 3.6 mmol/L (3.5-5.1); PROTEIN - SERUM 5.2 g/dL (6.4-8.2); SODIUM 132 mmol/L (136-145); UREA NITROGEN 13 mg/dL (7-18); eGFR NON AFRICAN AMERICAN > 90 mL/min (90-120)
[2018-08-12 07:28] LABS: WBC 19.6 10x3/uL (4.8-10.8)
[2018-08-12 08:04] LABS: ANISOCYTOSIS OCC; CRENATED CELLS OCC; HYPOCHROMASIA OCC; LYMPHOCYTES 23 % (15-50); MONOCYTES 16 % (2-11); NEUTROPHILS 38 % (40-80); PLATELET ESTIMATE DECREASED; ROULEAUX OCC
[2018-08-12 08:30] VITALS: BP 114/59
[2018-08-12 08:53] VITALS: BP 133/66
[2018-08-12] MEDS ORDERED: IPRAT-ALBUT 0.5-3 ML UPD (11:30)
[2018-08-12] MEDS ORDERED: BROVANA15 MCG/2 M INH (11:30)
[2018-08-12] MEDS ORDERED: ALBUTEROL2.5 MG/3 M INH (11:30)
[2018-08-12] MEDS ORDERED: ACETAMINOPHEN500 M1 PO (11:31)
[2018-08-12] MEDS ORDERED: HYDROCODON-ACE1 EAC7 PO (11:32)
[2018-08-12] MEDS ORDERED: IBUPROFEN800 MG PO (11:32)
[2018-08-12] MEDS ORDERED: THERMOTABS 1 GM1 GM PO (11:32)
[2018-08-12] MEDS ORDERED: PULMICORT0.5 MG/21 UPD (11:33)
[2018-08-12] MEDS ORDERED: MUCINEX DM ER1 EAC1 PO (11:33)
[2018-08-12] MEDS ORDERED: TESSALON PERLE100 MG PO (11:33)
[2018-08-12] MEDS ORDERED: SINGULAIR10 MG PO (11:33)
[2018-08-12] MEDS ORDERED: PROTONIX40 MG PO (11:34)
[2018-08-12] MEDS ORDERED: FLORAJEN3 CAPS460 MG PO (11:34)
[2018-08-12] MEDS ORDERED: FLUTICASONE PRO16 GM NASAL (11:34)
[2018-08-12] MEDS ORDERED: ZYLOPRIM100 MG PO (11:35)
[2018-08-12] MEDS ORDERED: MELATONIN 3 MG1 TAB PO (11:35)
[2018-08-12] MEDS ORDERED: MEDROL DOSE PACK4 MG PO (11:36)
[2018-08-12] MEDS ORDERED: PROZAC40 MG PO (11:39)
[2018-08-12 13:26] VITALS: BP 112/58
[2018-08-12 16:08] VITALS: BP 112/54
[2018-08-13 01:37] VITALS: BP 108/61
[2018-08-13 05:25] LABS: ALBUMIN 1.9 g/dL (3.4-5.0); ALKALINE PHOSPHATASE 75 U/L (46-116); ALT (SGPT) 86 U/L (10-68); BILIRUBIN - TOTAL 0.51 mg/dL (0.2-1.3); CALC OSMOLALITY 264 mosm/kg (275-300); CALCIUM 7.8 mg/dL (8.5-10.1); CARBON DIOXIDE 23.5 mmol/L (21.0-32.0); CHLORIDE - SERUM 101 mmol/L (98-107); CREATININE - SERUM 0.6 mg/dL (0.6-1.3); GLUCOSE 97 mg/dL (74-106); POTASSIUM - SERUM 3.3 mmol/L (3.5-5.1); PROTEIN - SERUM 5.3 g/dL (6.4-8.2); SODIUM 132 mmol/L (136-145); UREA NITROGEN 12 mg/dL (7-18); eGFR NON AFRICAN AMERICAN > 90 mL/min (90-120)
[2018-08-13 05:27] LABS: BASOPHILS 3.3 % (0-2); EOSINOPHILS 0.2 % (0-7); HEMATOCRIT 28.1 % (42.0-54.0); HEMOGLOBIN 9.9 g/dL (13.5-17.5); IMMATURE GRANULOCYTES 35.3 % (0-5); LYMPHOCYTES 11.8 % (15-50); MCH 32.6 pg (26.0-34.0); MCHC 35.2 g/dL (31.0-37.0); MCV 92.4 fL (80.0-100.0); MEAN PLATELET VOLUME 10.6 fL (7.4-10.4); MONOCYTES 6.3 % (2-11); NEUTROPHILS 43.1 % (40-80); PLATELET COUNT 61 10x3/uL (130-400); RBC 3.04 10x6/uL (4.20-6.10); RDW 14.2 % (11.5-14.5); WBC 16.3 10x3/uL (4.8-10.8)
[2018-08-13 06:06] VITALS: BP 109/66
[2018-08-13 09:14] VITALS: BP 108/61
[2018-08-13 12:41] VITALS: BP 98/56
[2018-08-13 16:48] VITALS: BP 108/61
[2018-08-13 20:00] VITALS: BP 88/53
[2018-08-14] VITALS: BP 103/57
[2018-08-14 04:00] VITALS: BP 146/77
[2018-08-14 09:15] VITALS: BP 146/77
[2018-08-14 12:39] VITALS: BP 145/80
== END 2018-08-14 16:33 | disposition home health service (06) | DRG 180 ==
LOC: D.MS 10:48
PROVIDERS: Family Medicine; Internal Medicine Hematology & Oncology; Internal Medicine Pulmonary Disease; Radiology Diagnostic Radiology
PROC: 0BBF3ZX Excision of Right Lower Lung Lobe, Percutaneous Approach, Diagnostic (ICD-10-PCS; principal; 2018-07-14 12:45)
PROC: 0JH63WZ Insertion of Totally Implantable Vascular Access Device into Chest Subcutaneous Tissue and Fascia, Percutaneous Approach (ICD-10-PCS; 2018-07-17)
PROC: 02HV33Z Insertion of Infusion Device into Superior Vena Cava, Percutaneous Approach (ICD-10-PCS; 2018-07-17)
PROC: B5181ZA Fluoroscopy of Superior Vena Cava using Low Osmolar Contrast, Guidance (ICD-10-PCS; 2018-07-17)
DX: C34.31 Malignant neoplasm of lower lobe, right bronchus or lung (principal); J96.01 Acute respiratory failure with hypoxia; J18.8 Other pneumonia, unspecified organism; G93.41 Metabolic encephalopathy; E87.1 Hypo-osmolality and hyponatremia; C79.51 Secondary malignant neoplasm of bone; E22.2 Syndrome of inappropriate secretion of antidiuretic hormone; F17.200 Nicotine dependence, unspecified, uncomplicated; E27.9 Disorder of adrenal gland, unspecified; R09.02 Hypoxemia; J43.9 Emphysema, unspecified; J30.9 Allergic rhinitis, unspecified; J32.9 Chronic sinusitis, unspecified; I10 Essential (primary) hypertension; M81.0 Age-related osteoporosis without current pathological fracture; I25.10 Atherosclerotic heart disease of native coronary artery without angina pectoris; F32.9 Major depressive disorder, single episode, unspecified; R62.7 Adult failure to thrive; D69.59 Other secondary thrombocytopenia; D70.1 Agranulocytosis secondary to cancer chemotherapy